=== PATIENT | female | born 1960 | race Caucasian/White ===

== ENCOUNTER 2018-02-27 08:33 | Day surgery (SDC) | payer OTHER, MEDICARE, SELFPAY ==
[2018-02-27] VITALS (7 sets, daily range): BP systolic 107–137; BP diastolic 68–86; PULSE 60–66; RESP 14–18; TEMP 36.7–37.3; O2SAT 96–100; BMI 15.4
--- NOTE | 2018-02-27 08:45 | EKG12_ITS ---
Test Reason : PRE-OP Blood Pressure : / mmHG Vent. Rate : 063 BPM Atrial Rate : 063 BPM P-R Int : 128 ms QRS Dur : 090 ms QT Int : 454 ms P-R-T Axes : 084 -46 040 degrees QTc Int : 464 ms Normal sinus rhythm Left axis deviation Abnormal ECG When compared with ECG of 02-OCT-2003 18:43, No significant change was found Confirmed by DANO QUIROGA, AYLIN ([id number]), assignment editor MAT VALADEZ ([id number]) on 03/02/2018 2:56:15 PM Referred By: Catracho Hernandez Confirmed By:AYLIN MATSON MD
[2018-02-27 09:14] LABS: Basophil# 0.04 X10^3/uL; Basophil% 1.5 % (0-1); Differential Indicated SCAN CRITERIA MET; Eosinophil# 0.06 X10^3/uL; Eosinophils% 2.3 % (0-5); Hematocrit 37.4 % (37-47); Hemoglobin 12.5 g/dl (12.0-15.0); Lymphocyte % 37.9 % (19-41); Mean Corp Hgb Conc 33.4 g/gl (32-36); Mean Corpuscular Hgb 31.2 pg (27.0-32.0); Mean Corpuscular Volume 93.3 fL (81-99); Monocyte# 0.54 X10^3/uL; Monocyte% 20.5 % (0-10); Neutrophil % 37.8 % (47-70); POSITIVE COUNT NO; POSITIVE DIFFERENTIAL YES; POSITIVE MORPHOLOGY NO; Platelet Count 206 K/mm3 (150-450); RBC Distribution Width CV 12.6 % (11.6-14.6); RBC Distribution Width SD 42.8 fl (35.1-43.9); Red Blood Count 4.01 M/mm3 (4.2-5.4); White Blood Count 2.6 K/mm3 (4.4-11.0)
[2018-02-27 09:35] LABS: ALB/GLOB Ratio 1.4 RATIO (0.9-2.4); AST(SGOT) 17 U/L (15-37); Alanine Aminotransfer ALT/SGPT 16 U/L (13-56); Alkaline Phosphatase 62 U/L (45-117); Anion Gap 7 (5-15); BUN 8 mg/dL (7-18); BUN/Creat Ratio 11.5 RATIO (10-20); Calcium,Total 8.8 mg/dL (8.5-10.1); Chloride 102 mmol/L (98-107); EST Glomerular Filtration Rate 91 mL/min (>60); Est Glom Filt Rate - Afr Amer 111 mL/min (>60); Estimated Creatinine Clearance 54.78 ml/min; Globulin 2.9 g/dL (2.2-4.2); Glucose 84 mg/dL (74-106); Potassium 3.7 mmol/L (3.5-5.1); Protein, Total 6.9 g/dL (6.4-8.2); Sodium Level 141 mmol/L (136-145); Thyroid Stim Hormone (TSH) 3.22 uIU/mL (0.358-3.74)
--- NOTE | 2018-02-27 10:00 | RAD_ITS ---
STUDY: X-RAY LEFT FOOT, FIRST AND FIFTH TOE REASON FOR EXAM: Female, 57 years old. Postoperative study TECHNIQUE: 2 view(s) of the toe were obtained. COMPARISON: None. FINDINGS: 2 views of the left toes are provided. There is a staple within the proximal first metatarsal. There is an arthroplasty of the fourth and fifth digits at the osteotomy of the head of the proximal phalanx of the fifth digit. There is a subtle irregular appearance of the tip of the distal phalanx of the first digit which may represent age-indeterminate fracture. RAD/Toe(s) Min 2 Views IMPRESSION: 2 views of the left toes are provided. There is a medial placed orthopedic staple within the proximal first metatarsal. There is an arthrodesis of the fourth and fifth digits and a osteotomy of the head of the proximal phalanx of the fifth digit. There is a subtle irregular appearance of the tip of the distal phalanx of the first digit which may represent age-indeterminate fracture. Electronically Signed: Sherrell Cantor MD at 17:28 EST Tel , Service support ,
[2018-02-27] MEDS: Bupivacaine Mpf 0.5% 30 ML VIAL (11:17)
[2018-02-27] MEDS: Cefazolin 2 GM in 0.9% Normal Saline 100 ML IV (11:29)
--- NOTE | 2018-02-27 12:54 | RAD_ITS ---
STUDY: X-RAY - LEFT FOOT CLINICAL: Female, 57 years old. Postop osteotomy first toe postoperative change fourth and fifth TECHNIQUE: 3 view(s) of the foot. COMPARISON: None. FINDINGS: Normal talus, calcaneus, and tarsal bones. Normal visualized subtalar, talonavicular, calcaneocuboid, tarsal and tarsometatarsal articulations. Normal metatarsi. Normal metatarsophalangeal joint of the great toe. Normal tibial and fibular sesamoid bones. Normal interphalangeal joint of the great toe. Normal phalanges of the great toe. Normal second through fifth metatarsophalangeal joints. There are K wires inserted into the fourth and fifth digits through the distal interphalangeal joint through the proximal interphalangeal joint of the fourth digit and fifth digit. There is been osteotomy of the head of the proximal phalanx of the fifth digit. There is been a repair of the first proximal phalanx. The bones are osteopenic. There is no visualized acute fracture. RAD/Foot min 3 Views IMPRESSION: Postoperative change first proximal phalanx, fourth and fifth digits. Electronically Signed: Sherrell Cantor MD at 14:28 EST Tel , Service support ,
--- NOTE | 2018-02-27 12:55 | DCINST_ITS ---
Discharge Diet: Light diet - advance as tolerated Discharge Activity: May Not Drive Weight Bearing Status: No weight bearing - No weightbearing left foot Keep extremity elevated above heart level: Left Leg - Keep left foot elevated for at least 50 minutes per hour with pillows Call your doctor if your incision/area has: Continuous Slow Oozing, Sudden Increased Bleeding, Increased Pain/ Swelling, Foul Smelling Discharge Call your doctor if you observe: Fever of 101 or Higher, Shortness of breath, Chest pain, Increased palpitations (irregular heartbeat), Calf discomfort, Uncontrolled pain Cleanse incision/area with: Do not get Incision Wet, Keep Dressing Clean & Dry Allergies/Adverse Reactions: Allergies adhesive tape Allergy (Verified 02/27/18 09:07) Itching fish oil Allergy (Verified 02/27/18 09:07) Unknown ragweed pollen Allergy (Verified 02/27/18 09:07) Unknown Sulfa (Sulfonamide Antibiotics) Allergy (Verified 02/27/18 09:07) Unknown DUST MITES Allergy (Uncoded 02/27/18 09:07) Other PENICILLUM NOTATUM Allergy (Uncoded 02/27/18 09:07) Other Medications to take at Discharge ALPRAZolam [Xanax] 0.5 mg PO BID 12/06/13 Cholecalciferol (Vitamin D3) [Vitamin D3] 1,000 unit PO DAILY 12/06/13 Cimetidine [Tagamet Hb] 200 mg PO DAILY PRN PRN 12/06/13 Cyanocobalamin (Vitamin B-12) [B-12] 1,000 mcg PO DAILY 12/06/13 Docusate Sodium [Colace] 100 mg PO DAILY PRN 12/06/13 Escitalopram Oxalate [Lexapro] 20 mg PO BID 12/06/13 Fluoxetine [Prozac] 20 mg PO DAILY 12/06/13 Gabapentin 300 mg PO BID 12/06/13 Gabapentin 600 mg PO QHS 12/06/13 Levothyroxine [Synthroid] 50 mcg PO QHS 12/06/13 Meclizine HCl 25 mg PO Q6H PRN PRN 12/06/13 Pyridoxine HCl [Vitamin B-6] 100 mg PO DAILY 12/06/13 Tolterodine Tartrate [Detrol] 1 mg PO QHS 12/06/13 Trazodone HCl 50 mg PO QHS 12/06/13 Bupropion HCl [Wellbutrin Xl] 150 mg PO DAILY 05/31/16 Dimethyl Fumarate [Tecfidera] 240 mg PO BID 05/31/16 L.acidoph,Paracasei, B.lactis [Probiotic] 1 each PO DAILY 02/24/18 Naproxen Sodium [Aleve] 220 mg PO Q12H PRN PRN 02/24/18 Vitamin A 10,000 unit PO DAILY 02/24/18 Hydrocodone Bitart/Apap 5-325 [[place] 5MG-325MG] 1 tab PO Q6H PRN PRN 3 Days #30 tab 02/27/18 The following prescriptions were given: Hydrocodone Bitart/Apap 5-325 [[place] 5MG-325MG] 1 tab PO Q6H PRN PRN 3 Days #30 tab PRN Reason: Pain Primary Care Physician: Fox Xiao MD [Primary Care Provider] - Test Results: Test results from this visit will be discussed in further detail at your follow- up appointment, if applicable. Please Follow Up With: Catracho Hernandez DPM When: within 1 week, sooner if needed
--- NOTE | 2018-02-27 12:57 | OP.PCM_ITS ---
Report of Operation Date of Procedure: 02/27/18 Pre-Operative Diagnosis: Hallux valgus, left. 4th and 5th digit hammer toes, left Post-Operative Diagnosis: Same Surgery/Procedure Performed:: Tressa (1st toe) osteotomy, left. Arthrodesis 4th toe, left. Arthroplasty 5th toe, left wire chief: yes - Dr. Eloisa Iraheta wire chief: yes - Dr. Cheyanne Hare Type of Anesthesia:: General Specimen's removed: None Description of Procedure: Indications: This is a 57 year-old female who has had chronic left foot pain to the 4th and 5th toes as well as 1st toe. She has lateral deviation of the hallux and 4th and 5th hammer toe deformities. She has trouble with shoes and with activities. She has tried nonsurgical care however her symptoms persist and are only getting worse. She was asking about surgical options. We discussed all of the options, and she elected to proceed with 1st toe tressa osteotomy as well as arthrodesis of the 4th toe and arthroplasty of the 5th toe. This was discussed with her in great detail. We reviewed all the possible benefits, risks, goals and expectations. She expressed understanding and agreement. We also reviewed the typical postoperative and expected postoperative course. She expressed understanding and agreement and wanted to proceed forward with surgical intervention. All alternative options were discussed with her and all the possible benefits, risks of the alternative options were discussed with her as well in detail. She expressed understanding and agreement and again want to proceed for surgical intervention. The consent form was reviewed with her and she freely signed them. No guarantees were given or implied. Operative Procedure: The patient was brought back into the operating room and was placed onto the operative table in the supine position. She was carefully secured to the operating room table with safety belt around her waist. The patient did receive 2 g of intravenous cefazolin for antibiotic prophylaxis, the patient received general anesthesia per the anesthesiologist. A well-padded pneumatic tourniquet was applied around her left ankle. The left foot was scrubbed, prepped and draped in the usual aseptic fashion. Further attention was directed to the left foot, there was significant hallux valgus deformity. The hallux was abutting into the second toe. The foot was elevated for 3 minutes and the left ankle pneumatic tourniquet was inflated to 250 mmHg. An incision was made using a 15 scalpel blade overlying the dorsal medial aspect of the hallux proximal phalanx, medial to the extension hallucis longus tendon. Careful dissection was completed down to the periosteum of the proximal phalanx of the hallux. The periosteum was incised on the hallux proximal phalanx and was partially reflected exposing the bone for an Tressa osteotomy. Tressa osteotomy was completed using a powered sagittal saw with the apex of the osteotomy lateral and the base medial. The wedge of bone was gently removed, keeping the lateral cortex intact. The hallux was shifted medially so that it was in a rectus position clinically. The bone ends were brought together and was fixated using rigid open reduction and internal fixation technique using one Arthrex nitinol staple. The 1st metatarsal phalangeal joint was checked and the staple was not in the joint. At this time, the osteotomy site was stable, good bone to bone contact and good fixation present. Intraoperative fluoroscopy confirmed this as well. The hallux was put through a range of motion, there was good smooth gliding range of motion present. The site was flushed out with copious amounts of normal saline solution. The periosteum and the first metatarsophalangeal joint capsule was carefully reapproximated using 3-0 Vicryl. The subcutaneous tissue layer was carefully reapproximated using 3-0 Vicryl. The skin was carefully reapproximated using 4-0 Monocryl. Procedure on 4th toe left foot: Two semi-elliptical converging skin incisions were made around the dorsal aspect of the proximal interphalangeal joint (PIPJ). The skin within the incisions was excised. The extensor digitorum longus tendon was visualized and incised transversely with a 15 blade. The dorsal PIPJ joint capsule was incised with a 15 blade. The extensor tendon was reflected off of the head of the proximal phalanx. The cartilage on the head of the proximal phalanx was resected using a sagittal saw. The cartilage on the base of the middle phalanx was resection using a bone cutting rongeur. The site was flushed out with copious amounts of normal saline solution. A 0.062 inch kwire was placed through the phalanges of the toe holding the toe in rectus position, there was good bone to bone contact at the arthrodesis site. This was confirmed with intra operative fluoroscopy. The site was again flushed out with copious amounts of normal saline solution. The joint capsule and extensor digitorum longus tendon was reapproximated using 4-0 Vicryl, the skin was reapproximated using 4-0 Monocryl. The kwire was trimmed outside of the toe at the distal aspect and was capped with a pin cap. Procedure on 5th toe left foot: Two oblique semi-elliptical converging skin incisions were made around the dorsal aspect of the proximal interphalangeal joint (PIPJ). The skin within the incisions was excised. The extensor digitorum longus tendon was visualized and incised transversely with a 15 blade. The dorsal PIPJ joint capsule was incised with a 15 blade. The extensor tendon was reflected off of the head of the proximal phalanx. The head of the proximal phalanx was resected using a powered sagittal saw. The site was flushed out with copious amounts of normal saline solution. A 0.062 inch kwire was placed through the phalanges of the toe holding the toe in rectus position. This was confirmed with intra operative fluoroscopy. The site was again flushed out with copious amounts of normal saline solution. The joint capsule and extensor digitorum longus tendon was reapproximated using 4-0 Vicryl, the skin was reapproximated using 4-0 Monocryl. The kwire was trimmed outside of the toe at the distal aspect and was capped with a pin cap. The pneumatic tourniquet was deflated at 60 minutes. There was immediate return of warmth and perfusion to the foot and to all five toes of the foot. CFT was < 2 seconds to all toes with normal temperature present. A 1st, 4th and 5th ray block was completed using 14mL of 0.5% Bupivacaine plain. A dressing was applied which consisted of Betadine soaked Adaptic, 4x4 gauze, Kerlix and an Edil bandage. The patient tolerated the above procedure well and anesthesia well with no complications. The patient was transported from the operative room to the recovery room with vital signs stable and in good condition. Post operative orders were placed, and post operative instructions were reviewed with the patient and her who was with her today (verbal and written). No weightbearing left forefoot, keep the dressing clean, dry and intact. Keep foot elevated for at least 50 minutes of every hour. Post operative prescriptions for [place] for pain control. Patient to follow up in 1 week, sooner if needed. Also of note post operative xrays were obtained of the left foot in the recovery room, which were reviewed. These confirmed hallux osteotomy (tressa) with good position present, with intact staple. Also s/p arthrodesis of the 4th toe and arthroplasty of the 5th toe with kwire intact, and toes in good alignment.. Grafts/Implants Used: 2 x 0.062 in kwires, 1 x Arthrex Nitinol staple - Complications None
== END 2018-02-27 14:43 | disposition home or self-care (01) ==
LOC: SDC 08:35 → AC 08:36
PROVIDERS: Family Provider Family Medicine; PCP Family Medicine; Referring Provider Podiatrist; Visit Provider Podiatrist
PROC: (CPT 28298; principal; 2018-02-27 09:45)
DX: M20.42 Other hammer toe(s) (acquired), left foot (principal); M20.12 Hallux valgus (acquired), left foot; F41.9 Anxiety disorder, unspecified; F32.9 Major depressive disorder, single episode, unspecified; G35 Multiple sclerosis; R56.9 Unspecified convulsions; E03.9 Hypothyroidism, unspecified; Q39.1 Atresia of esophagus with tracheo-esophageal fistula; Z87.440 Personal history of urinary (tract) infections; Z79.899 Other long term (current) drug therapy
CPT/HCPCS: 28285 ×2; 28296; 73630; 73660; 76000; 80053; 84443; 85025; 93005; C1713; J7120; J2405

== ENCOUNTER 2018-06-10 13:30 | Outpatient (RCR) | payer OTHER, MEDICARE, SELFPAY ==
[2018-02-27 09:11] VITALS: BMI 15.4
--- NOTE | 2018-05-05 19:06 | HP.PTEVAL ---
Patient's Visit Information GURMEET MOSHER is a 58 year old F referred to Physical Therapy by Catracho Hernandez DPM with a diagnosis of L hammer toes correction. Date of Evaluation: 05/05/18 Physical Therapist: Livan Altamirano DPT, OCS, CSCS - Visit Plan Frequency: 3x /Week Duration: 4-6 Weeks Plan: 3x/week for 4 weeks. 1. gastroc and soleus stretch L, ankle TB strength, stretch quads and hip flexors also. 2. increase gradual WB adn gait with L foot. 3. General strength ex for posture, LE and core machines and body weight. - Subjective Findings: 02/27/19 fixed L hammer toes 1,4,5. Painful at the time adn limited function. Now not painful. Needs to be stronger in legs. Had been wheelchair NWB until mid March. Walking in boot a little last three weeks. Surgical shoe feels better as she has MS. Uses walking stick all the time due to MS adn surgery. Has service dog but not with her today. Sleeping OK. Spends day working on speech, fairly sedentary. Cleans some toilets and bathrroma nd washes dishes. If on feet too long than it complains. 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 Wants to get back to pool ex when able. - Pain L foot Pain Intensity (Out of 10): 0 Pain Intensity Range: 0, 2 Comment: washing dishes - Objective In walking boot on L and walking with stick which is normal for her, dons and doffs boot I. Without boot can walk with stick but hesitant to put weight through L otes, very little push off B. Bears weight asymmetrically more through R in stance. pes cavus B with some forefoot supination L >R. Incisions look good and are dry and no excessive redness heat or swelling. AROM toes L limited symmetricall, has 10 degrees passive big toe ex but can only active move to neutral, has 25 degrees flexion. AROM ankle 0 DF L and 7 on R, PF is full B, inv/ev WFL. Metatarsals move stiff on L, increased tone likely due to MS. strength.4- L inv/ev , DF and 3 + PF, R is 4/5 throughout. knee strength 4 B. Hip strength 3 abd and ext L and 3+ R, flexion is 4/5 B. Pt does not want to put weight through L side and avoids toe WB. Pt is WBAT on L foot but uses boot out and about. - Goals Goal 1:: 6 degrees DF L and able to bear weight symmetrically with stance Goal Time Frame: 4-6 Weeks Goal 2:: Walk normal community distances without pain Goal Time Frame: 4-6 Weeks Goal 3:: Steps reciprocally with rail Goal Time Frame: 4-6 Weeks Goal 4:: Pt feel 75% better with strength adn back to activity level Goal Time Frame: 4-6 Weeks - Rehabilitation Potential Physical Therapy Diagnosis: s/p L hammer toe correction Rehabilitation Potential: Fair - Anticipated Interventions Patient/Client Instruction: Educate patient on: Condition, Plan of Care For the Purpose of:: To decrease pain, To increase ROM, To improve nutrient delivery to tissue, To improve ability of physical actions for home/community/work/leisure Therapeutic Exercise to Include: Strength training, Balance training, Coordination, Flexibilty training, Gait and locomotor training, Passive ROM, Active ROM For the Purpose of:: To decrease pain, To increase ROM, To improve nutrient delivery to tissue, To improve muscle performance and motor function, To increase tolerance to activity/condition/position, To improve gait and locomotor functions Manual Therapy Techniques to Include: Passive ROM, Soft tissue mobilization For the Purpose of:: To decrease pain, To increase ROM, To improve nutrient delivery to tissue Thank you for the opportunity to evaluate your patient. For Medicare and Medicare HMO plans, please review the plan of care and approve it. It will need to be FAXED BACK to us at [phone] for Medicare purposes. For Medicare only, by signing this I certify the plan of care. Please let me know if there are questions or concerns regarding this plan of care. Physician Signature: Date:
--- NOTE | 2018-06-03 13:59 | HP.PTREVAL ---
Catracho Hernandez, GRETA, It has been my pleasure to treat GURMEET MOSHER over the last 12 visits for L hammer toes correction. Please see the progress note below for an update on the physical therapy plan of care! Subjective: Doing very well. Back to mostly normal acitviites excedpt not driving( won't let her. Foot feels good with 3/10 pain at times and some tender areas that she is putting cream from doctor on. Sleeping well. Objective/Function: 8 degrees AROM DF knee bent and 6 degrees knee straight. Tender to top of 1st met head but toes RPOM painfree today and fair ROM. Walking in shoes with trendelenberg without cane but safe on firm flat surface. Plan Plan: 2 visits next week to encourage independence with gym(teach set up, write them out adn give copy) Then liekly D/C Goals Goal 1:: 6 degrees DF L and able to bear weight symmetrically with stance Goal Time Frame: 4-6 Weeks Goal Progress: Goal Met Goal 2:: Walk normal community distances without pain Goal Time Frame: 4-6 Weeks Goal Progress: Progressing Goal 3:: Steps reciprocally with rail Goal Time Frame: 4-6 Weeks Goal Progress: Goal Met Goal 4:: Pt feel 75% better with strength adn back to activity level Goal Time Frame: 4-6 Weeks Goal Progress: Progressing Anticipated Interventions Patient/Client Instruction: Educate patient on: Condition, Plan of Care For the Purpose of:: To decrease pain, To increase ROM, To improve nutrient delivery to tissue, To improve ability of physical actions for home/community/work/leisure Therapeutic Exercise to Include: Strength training, Balance training, Coordination, Flexibilty training, Gait and locomotor training, Passive ROM, Active ROM For the Purpose of:: To decrease pain, To increase ROM, To improve nutrient delivery to tissue, To improve muscle performance and motor function, To increase tolerance to activity/condition/position, To improve gait and locomotor functions Manual Therapy Techniques to Include: Passive ROM, Soft tissue mobilization For the Purpose of:: To decrease pain, To increase ROM, To improve nutrient delivery to tissue Please do not hesitate to contact me at [phone] by phone or if you have questions or concerns regarding this new plan of care! Sincerely, Livan Altamirano, DPT, OCS, CSCS
--- NOTE | 2018-06-10 14:38 | HP.PTDCSUM ---
HP - PT D/C Summary It has been my pleasure to treat GURMEET MOSHER under orders from Catracho Hernandez DPM, for the diagnosis of L hammer toes correction for a total of 14 visit(s). Discharge Date: 06/10/18 Please see the following information for a summary of their discharge status. - Subjective Subjective: Doing fine, ready to be on own. - Pain L foot Pain Intensity (Out of 10): 2 - Overall Improvement % Improvement: 70 - Objective Objective/Function: Walking with cane I and without unusual gait deviations. Pt ready to be on own and doign well in the gym. - Goals Goal 1:: 6 degrees DF L and able to bear weight symmetrically with stance Goal Progress: Goal Met Goal 2:: Walk normal community distances without pain Goal Progress: Goal Met Goal 3:: Steps reciprocally with rail Goal Progress: Goal Met Goal 4:: Pt feel 75% better with strength adn back to activity level Goal Progress: Goal Met - Plan Plan: Pt D/C and will join as a member and continue I. - D/C Information Discharge Comments: Pt doing very well with goals , stretches and plans to cotninue strength via gym membership and foot ROM and stretches via HEP. If there are questions or concerns regarding this patient's physical therapy, please feel free to call me at [phone]. Thank you for the referral of this patient. Sincerely, Livan Altamirano, DPT, OCS, CSCS
== END 2018-06-10 19:00 | disposition home or self-care (01) ==
LOC: PT 13:30
PROVIDERS: Family Provider Family Medicine; PCP Family Medicine; Referring Provider Podiatrist; Visit Provider Podiatrist
DX: Z98.890 Other specified postprocedural states (principal)
CPT/HCPCS: 97110; 97140; 97162; 97530

== ENCOUNTER → 2019-01-21 | Outpatient (CLI) | payer OTHER, MEDICARE, SELFPAY ==
[2018-10-29 14:25] VITALS: BMI 16.1
--- NOTE | 2019-01-21 18:14 | MRI_ITS ---
STUDY: MRI LEFT FOREFOOT WITHOUT CONTRAST REASON FOR EXAM: Female, 58 years old. First toe fracture. Prior hammertoe surgery. TECHNIQUE: Standardized fat and water weighted pulse sequences were obtained in all 3 orthogonal planes. COMPARISON: X-ray dated February 27, 2018. FINDINGS: Acute nondisplaced first distal phalanx fracture with extensive bone marrow edema (sagittal image 21 series 5 and axial image 16 series 8). No dislocation. No bone destruction. Postsurgical hardware at the first proximal phalanx (coronal image 13 series 8). Proximal interphalangeal joint arthrotomies with osseous fusion of the second and third proximal interphalangeal joints. Mild joint space narrowing at the distal interphalangeal joints diffusely. Mild joint space narrowing at the fourth and fifth proximal interphalangeal joints with suspected arthrotomy at the fifth digit. Mild bone marrow edema/contusion at the fourth and fifth digits most prominent around the proximal interphalangeal joints. Normal flexor tendons. Normal extensor tendons. Normal Lisfranc ligament. No focal muscle atrophy. MRI/Lower Ext/No Jt/w/o IMPRESSION: Acute nondisplaced first distal phalanx fracture with marrow edema Multiple PIP joint arthrotomies with fusion of the second and third PIP joints Mild bone marrow edema/contusion at the fourth and fifth digits without fracture lines First proximal phalanx postsurgical hardware Mild joint space narrowing Electronically Signed: Livan Nath DO at 9:55 EDT Tel , Service support ,
== END | disposition home or self-care (01) ==
LOC: MRI 17:55
PROVIDERS: Family Provider Family Medicine; PCP Family Medicine; Referring Provider Podiatrist; Visit Provider Podiatrist
DX: M19.072 Primary osteoarthritis, left ankle and foot (principal); S92.402A Displaced unspecified fracture of left great toe, initial encounter for closed fracture
CPT/HCPCS: 73718

== ENCOUNTER 2019-08-06 15:05 | Emergency (ER) | payer OTHER, MEDICARE, SELFPAY ==
[2018-10-29 14:25] VITALS: BMI 16.1
[2019-08-06 15:06] VITALS: BP 96/66; PULSE 76; RESP 18; TEMP 36.7; O2SAT 99; BMI 15.4
[2019-08-06 15:34] VITALS: BP 96/66; PULSE 76; RESP 18; TEMP 36.7; O2SAT 99
--- NOTE | 2019-08-06 15:41 | ED.DCSUM_ITS ---
- ER Visit Summary Date of Service: 08/06/19 Chief Complaint: Fever History of Present Illness: The patient is a 59 F who presents with fever that has been constant for the past month. Patient states her temperature was greater than 100.5. Patient admits to some urinary frequency. Patient states she has been treated with 2 different courses of antibiotics for urinary tract infections. Patient admits to some loose stools but denies any diarrhea. Patient denies any nausea or vomiting. Patient does admit to a sore throat. Patient denies any cough or shortness of breath. Patient states earlier in the month she had an episode of chest pain but this has resolved and has not returned. Physical Examination: Vital signs are stable. Patient is afebrile here. Patient is in no acute distress. Neck is supple. Trachea is midline. There is no JVD. Heart was regular rate and rhythm. Lungs are clear and equal bilaterally. Abdomen is soft. Bowel sounds are normal. There is no tenderness. Cranial nerves II through XII are intact. There are no focal motor or sensory deficits noted. Extremities are intact. There is no calf tenderness or edema. Test Results: CBC was essentially within normal limits. Comprehensive metabolic profile and urinalysis were normal. Rapid strep, RSV, and influenza swabs were obtained were all good if. Portable chest x-ray was obtained. There is hyperinflation consistent with COPD but no acute process. This was interpreted by the radiologist and reviewed by myself. Emergency Department Course and Treatment: Patient was afebrile here and remained afebrile. Patient was feeling better on reevaluation. Patient was advised of her results. Patient was instructed to follow-up with her primary care physician in 5 to 7 days. Patient understood and was agreeable with the plan. All questions were answered. Disposition: Discharge home Impression: Fever of unknown etiology This note was generated with [employer] dictation software. It may contain incorrect words, spelling, and punctuation that were not noted in review of the chart prior to signing ED Disposition - Plan for ED Patient: Disposition: Home or Assisted Living Diagnosis: Fever of unknown origin Instructions: ED FUO Adult Referrals: Fox Xiao MD [Primary Care Provider] - 5-7 Days
[2019-08-06 15:52] LABS: Bacteria 0 SEEN /hpf (None Seen)
--- NOTE | 2019-08-06 15:52 | RAD_ITS ---
STUDY: X-RAY CHEST REASON FOR EXAM: Female, 59 years old. FEVER X 1 MONTH TECHNIQUE: The COMPARISON: None. FINDINGS: Hyperexpansion without infiltrates, consolidation or atelectasis. There is no demonstrated pleural abnormality. Normal size heart. Normal mediastinum and silvia. Normal visualized pulmonary arteries. Normal visualized aortic arch and descending thoracic aorta. Normal visualized thoracic spine. Normal visualized ribs, clavicles, and shoulders. There is no demonstrated abnormality of the visualized soft tissue structures of the upper abdomen. RAD/Chest 1 View (Portable) IMPRESSION: Hyperexpansion consistent with a component of COPD without other acute cardiopulmonary findings. Negative for consolidation, atelectasis, cardiomegaly or pleural effusion. Electronically Signed: Erna Vences MD at 16:09 EDT , Service support ,
[2019-08-06 16:00] LABS: Color, Urine Yellow (Yellow); Glucose, Dipstick Normal (Normal); Ketone-Dipstick Negative (Negative); Leukocyte Esterase-Dipstick Negative /ul (Negative); Nitrite-Dipstick Negative (Negative); Occult Blood-Urine 10 /ul (Negative); Protein-Dipstick Negative (Negative); Specific Gravity, Urine 1.015 (1.002-1.030); Urine Bilirubin Dipstick Negative (Negative); Urine Clarity Clear (Clear); Urine Urobilinogen Normal (Normal)
[2019-08-06 16:08] LABS: Absolute Lymphocyte Count 0.95 X10^3/uL (0.83-4.51); Absolute Neutrophil Count 1.9 X10^3/uL (2.0-7.7); Basophil# 0.03 X10^3/uL; Basophil% 0.9 % (0-1); Eosinophil# 0.05 X10^3/uL; Eosinophils% 1.5 % (0-5); Hematocrit 37.4 % (37-47); Hemoglobin 12.5 g/dL (12.0-15.0); Lymphocyte # 0.95 X10^3/ul (4.0); Lymphocyte % 28.3 % (19-41); Mean Corp Hgb Conc 33.4 g/dL (32-36); Mean Corpuscular Hgb 32.5 pg (27.0-32.0); Mean Corpuscular Volume 97.1 fL (81-99); Mean Platelet Vol. 11.1 fl (6.2-12.0); Monocyte# 0.46 X10^3/uL; Monocyte% 13.7 % (0-10); NRBC Flagged by Analyzer 0 % (0-5); Neutrophil # 1.86 X10^3/uL (2.7-7.7); Neutrophil % 55.3 % (47-70); Platelet Count 190 K/mm3 (150-450); RBC Distribution Width CV 12.5 % (11.6-14.6); RBC Distribution Width SD 44.5 fl (35.1-43.9); Red Blood Count 3.85 M/mm3 (4.2-5.4); White Blood Count 3.4 K/mm3 (4.4-11.0)
[2019-08-06 16:27] LABS: ALB/GLOB Ratio 1.4 RATIO (0.9-2.4); AST(SGOT) 16 U/L (15-37); Alanine Aminotransfer ALT/SGPT 24 U/L (13-56); Albumin, Serum 4.1 g/dL (3.2-5.0); Alkaline Phosphatase 78 U/L (45-117); Anion Gap 4 (5-15); BUN 13 mg/dL (7-18); Calcium,Total 9.2 mg/dL (8.5-10.1); Chloride 107 mmol/L (98-107); Creatinine, Serum 0.68 mg/dL (0.55-1.02); EST Glomerular Filtration Rate 93 mL/min (>60); Est Glom Filt Rate - Afr Amer 112 mL/min (>60); Estimated Creatinine Clearance 54.31 ml/min; Globulin 2.9 g/dL (2.2-4.2); Glucose 103 mg/dL (74-106); Potassium 4.3 mmol/L (3.5-5.1); Sodium Level 143 mmol/L (136-145)
[2019-08-06 16:59] LABS: Squamous Epithelial Cells - UA 0-5 SEEN /hpf (5-10)
[2019-08-06 17:00] LABS: Mucous, Urine RARE /hpf (<or=2+); Red Blood Cells-Urine 0-5 SEEN /hpf (0-5)
[2019-08-06 17:01] LABS: White Blood Cells 0-5 SEEN /hpf (0-5)
[2019-08-06 19:08] VITALS: BP 104/64; PULSE 56; RESP 18; TEMP 36.8; O2SAT 100
== END 2019-08-06 19:12 | disposition home or self-care (01) ==
PROVIDERS: Emergency Provider Emergency Medicine; PCP Family Medicine
DX: R50.9 Fever, unspecified (principal); G35 Multiple sclerosis; K50.90 Crohn's disease, unspecified, without complications; Z79.899 Other long term (current) drug therapy
CPT/HCPCS: 71045; 80053; 81001; 85025; 87804; 87807; 87880; 99283; A4216

== ENCOUNTER → 2019-12-02 | Outpatient (CLI) | payer OTHER, MEDICARE, SELFPAY ==
[2019-09-15 11:47] VITALS: BMI 15.4
--- NOTE | 2019-12-02 15:05 | US_ITS ---
HISTORY: NEUROGENIC BLADDER ADDITIONAL HISTORY: None provided. COMPARISON: None. TECHNIQUE: Ultrasound of the kidneys and bladder performed with grayscale and color Doppler imaging. FINDINGS: RIGHT KIDNEY: 8.4 x 4.5 x 3.4 cm LEFT KIDNEY: 8.1 x 3.9 x 3.9 cm ECHOGENICITY: Unremarkable. HYDRONEPHROSIS: None. CALCULI: None. RENAL LESIONS: None. BLADDER: No significant bladder wall thickening. Postvoid residuum of approximately 102 mL. URETERAL JETS: Visualized US/Kidney and Bladder IMPRESSION: No acute renal abnormality is sonographically apparent. Post void residuum of the bladder measuring approximately 102 mL. at 0111 Reported and signed by: Venus Koehler MD Electronically Signed: Venus Koehler MD at 1:10 EDT Tel , Service support ,
== END | disposition home or self-care (01) ==
LOC: US 15:00
PROVIDERS: PCP Family Medicine; Referring Provider Urology; Visit Provider Urology
DX: N31.9 Neuromuscular dysfunction of bladder, unspecified (principal)
CPT/HCPCS: 76770

== ENCOUNTER 2020-10-04 14:00 | Outpatient (RCR) | payer OTHER, MEDICARE, SELFPAY ==
[2019-09-15 11:47] VITALS: BMI 15.4
--- NOTE | 2020-09-04 16:07 | HP.PTEVAL_ITS ---
Patient's Visit Information GURMEET MOSHER is a 60 year old F referred to Physical Therapy by HOMER RICE with a diagnosis of MS, frequent falls. Date of Evaluation: 09/04/20 Physical Therapist: Livan Altamirano, NOELLET, OCS, CSCS - Visit Plan Frequency: 1x/Week Duration: 4-6 Weeks Plan: weekly x 4 for insturction and progression of. WB hip ex(inchworms, sidesquat, dips, bridges, clamshells), ankle ex DF and gastroc stretch, and proprioception(foam, tandem stance, head movements and dynamic balance) - Subjective I am having trouble walking. I fall alot. Falls weekly. Balance is off. No spinning, weakness in legs. Not sure why it is worseing but feels weaker. Does some exercises at home including HS stretches, single leg squats, mule kicks, hip abduction standing, knee flexion standing,gastroc stretch, tennis for balance. Does these ex daily utside of tennis. Not sure why she is falling more now however she stayed home for covid adn did much less. Could not get into gym due to covid. No spinning. Neuropathy in legs from MS diagnosis 1980. Uses walking sticks to get around and has assistance dog that helps her(not present today). Basic ADLs are getting done. Hobbies include coloring whcih she can do. Plays tennis on [employer]. Dresses self. Steps at home with two rails and tries to do them quickly(holding on) for heart rate. Started pool ex yesterday at home. Was walking better after that and will be in all summer. Surgery on feet has kept her from wearing her braces whcih she has AFOs for L which is weaker. - Objective Walks with B poles two point gait pattern in adn out of PT safe adn I. Walks without AD needing SBA for safety. Ataxic. Trasnfer without UE I bed adn chair. Squats to parallel I needing cues to keep knees apart ont he recovery. SLS is hard for patient who acks propriaoception. Steps require at least one rail and prefers two and can do reciprocal, L leg weaker. AROM LE WFL today, sensation LE WNL to gross light touch. reflexes patella and achilles 2/3. UEAROM WFL. strength hip ext L 3 adn R 3+, abd 3 L and 3 R, flexion R 3+ adn L 3. knee ext 4 L adn 4- R, knee flexion 3+ L and 4- R. Ankles weak in DF 3+ and 4- PF adn 3 L inv/ev adn 3+ R. - Balance Scores Functional Gait Assessment Score: 13 % Disability: 56.6700 CATSIB Score (Max score 120 seconds): 38 - Goals Goal 1:: I ppropriate HEP for hip strength, ankle strength, proprioception Goal Time Frame: 4-6 Weeks Goal 2:: Pt feel I management of condition Goal Time Frame: 4-6 Weeks Goal 3:: up from chair and down steps without kness coming together. Goal Time Frame: 4-6 Weeks - Rehabilitation Potential Physical Therapy Diagnosis: weaknessin hips,ankles and diminished proprioception leading to mobility risks Rehabilitation Potential: Fair - Anticipated Interventions Patient/Client Instruction: Educate patient on: Condition, Plan of Care For the Purpose of:: To decrease pain, To increase ROM, To improve muscle performance and motor function, To increase tolerance to activity/condition/position Therapeutic Exercise to Include: Strength training, Balance training, Postural training, Neuromotor development For the Purpose of:: To improve nutrient delivery to tissue, To improve muscle performance and motor function, To increase tolerance to activity/condition/position, To improve gait and locomotor functions, To improve balance Thank you for the opportunity to evaluate your patient. For Medicare and Medicare HMO plans, please review the plan of care and approve it. It will need to be FAXED BACK to us at [phone] for Medicare purposes. For Medicare only, by signing this I certify the plan of care. Please let me know if there are questions or concerns regarding this plan of care. Physician Signature: Date:
--- NOTE | 2020-12-07 17:56 | HP.PT.NRP ---
GURMEET MOSHER was seen in my office for initial evaluation on 09/04/20. The following Plan of Care was established for this patient: Initial Frequency: 1x/Week Initial Duration: 4-6 Weeks Patient/Client Instruction: Educate patient on: Condition, Plan of Care For the Purpose of:: To decrease pain, To increase ROM, To improve muscle performance and motor function, To increase tolerance to activity/condition/position Therapeutic Exercise to Include: Strength training, Balance training, Postural training, Neuromotor development For the Purpose of:: To improve nutrient delivery to tissue, To improve muscle performance and motor function, To increase tolerance to activity/condition/position, To improve gait and locomotor functions, To improve balance This patient was last seen in our office 10/04/20. Pertinent comments regarding their Physical therapy will appear below: Pt seen 3 visits and was 50% improved overall. she was to f/u 3 weeks later for progression but did not schedule or attend. at this point, it has been over two months and I will discontinue due to nonattendance. At this point I will be discontinuing this patient from physical therapy. I would be happy to see this patient again in the future if found appropriate by the physician. Thank you! Livan Altamirano, DPT, OCS, CSCS Balance/Gait/Functional tests - Balance/Special Test Scores Functional Gait Assessment Score: 13 % Disability: 56.6700 CATSIB Score (Max score 120 seconds): 38 Lower Extremity Functional Score: 50
== END 2020-10-04 19:00 | disposition home or self-care (01) ==
LOC: PT 14:00
PROVIDERS: PCP Family Medicine
DX: G35 Multiple sclerosis (principal); R27.0 Ataxia, unspecified; R29.6 Repeated falls
CPT/HCPCS: 97110; 97162

== ENCOUNTER 2020-10-29 14:57 | Emergency (ER) | payer OTHER, MEDICARE, SELFPAY ==
[2019-09-15 11:47] VITALS: BMI 15.4
[2020-10-29 14:58] VITALS: BP 104/60; PULSE 68; RESP 16; TEMP 36.6; O2SAT 100; BMI 16.0
--- NOTE | 2020-10-29 15:27 | EX.ED.DYSGE1 ---
HPI History of Present Illness Chief Complaint: Other, Pain/Inj Informant: patient Narrative Narrative: Patient is a 60-year-old female with history of multiple sclerosis presenting with left-sided rib/flank pain as well as urinary symptoms. Patient states she had a fall 1 week ago. She tripped into a coffee table. She did hit her head. She landed on her left side. She went to urgent care couple days later and had x-rays which she states were normal. She is continued have pain in her left lower ribs is worse with deep breathing and movement. She does note that she recently had a urinary tract infection and finished a course of ciprofloxacin. She had her last dose today. Her urologist is Dr. Eason. Patient notes that she self-caths every night and had to self cath during the day 2 days ago because she drank a bottle water and was unable to urinate afterwards. Patient denies any radiation of the pain. She is concerned she possibly could have a kidney stone. She denies any associated rash. She denies any bruising. [facility] Medical History Anxiety Depression History of toe fracture Hypoglycemia Hypothyroid IBS (irritable bowel syndrome) Multiple sclerosis Neuropathy Osteopenia Home Medications alprazolam 0.25 mg PO BID 12/06/13 [History Last Taken 03/28/17] cholecalciferol (vitamin D3) 1,000 unit PO DAILY 12/06/13 [History Last Taken Unknown] cyanocobalamin (vitamin B-12) 1,000 mcg PO DAILY 12/06/13 [History Last Taken Unknown] docusate sodium 100 mg PO DAILY PRN 12/06/13 [History Last Taken Unknown] escitalopram oxalate 20 mg PO BID 12/06/13 [History Last Taken 06/07/16 05:15] fluoxetine 20 mg PO DAILY 12/06/13 [History Last Taken 06/07/16 05:15] gabapentin 300 mg PO BID 12/06/13 [History Last Taken 02/27/18 300 MG] gabapentin 600 mg PO QHS 12/06/13 [History Last Taken Unknown] levothyroxine 50 mcg PO QHS 12/06/13 [History Last Taken Unknown] meclizine 25 mg PO Q6H PRN PRN 12/06/13 [History Last Taken Unknown] pyridoxine (vitamin B6) 100 mg PO DAILY 12/06/13 [History Last Taken Unknown] trazodone 50 mg PO QHS 12/06/13 [History Last Taken Unknown] bupropion HCl 300 mg PO DAILY 05/31/16 [History Last Taken Unknown] L.acidoph, paracasei,B. lactis 1 ea PO DAILY 02/24/18 [History Last Taken Unknown] naproxen sodium 220 mg PO Q12H PRN PRN 02/24/18 [History Last Taken Unknown] ferrous sulfate 325 mg PO DAILY 10/29/20 [History Last Taken Unknown] hydrocodone-acetaminophen 1 tab PO Q6H PRN 3 Days #12 tab 10/29/20 [Rx Last Taken Unknown] oxybutynin chloride 10 mg PO DAILY 10/29/20 [History Last Taken Unknown] Allergy/AdvReac Type Severity Reaction Status Date / Time adhesive tape Allergy Itching Verified 10/29/20 15:02 fish oil Allergy Unknown Verified 10/29/20 15:02 ragweed pollen Allergy Unknown Verified 10/29/20 15:02 Sulfa (Sulfonamide Allergy Unknown Verified 10/29/20 15:02 Antibiotics) DUST MITES Allergy Other Uncoded 10/29/20 15:02 PENICILLUM NOTATUM Allergy Other Uncoded 10/29/20 15:02 Family History Other Cancer Heart disease Hypertension Social History Smoking Status: Never smoker alcohol intake: never substance use type: does not use what type of physical activity do you participate in: walking frequency: 3-4 times per week ROS ROS ED Constitutional Constitutional ED: Denies chills or fever(s) Eyes Eyes: Denies change in vision ENT ENT ED: Denies rhinorrhea or sore throat Cardiovascular Cardiovascular: Reports chest pain Respiratory/Chest Respiratory/Chest: Denies cough or dyspnea Gastrointestinal Gastrointestinal: Denies abdominal pain, diarrhea or vomiting Genitourinary Genitourinary ED: Reports other Details: urinary retention ; Denies dysuria or hematuria Musculoskeletal Musculoskeletal: Reports other Details: left flank pain ; Denies arthralgias, back pain, myalgias or neck pain Integumentary Denies rash Neurologic Neurologic: Denies headache(s) or weakness Psychiatric Psychiatric: Denies depression EXAM Physical Exam Const Vital Signs: 10/29/20 14:58 10/29/20 15:12 10/29/20 17:50 Temperature 98 F Temperature Source Temporal Pulse Rate 68 Respiratory Rate 16 Respiratory Effort Normal Non-Labored Normal Respiratory Depth Normal Respiratory Pattern Normal Normal Blood Pressure 104/60 Blood Pressure Mean 74 Pulse Ox 100 Oxygen Delivery Method Room Air Room Air Positive well nourished and well developed General Appearance ED: well developed HEENT Reports moist mucous membranes Negative for trauma or tenderness Eyes PERRL and EOMs intact bilaterally Neck supple Chest Wall inspection of chest normal Chest: tenderness rib (left) 11th rib and 12th rib; Negative for crepitus Resp normal respiratory effort and clear to auscultation bilaterally Auscultation: Negative for wheezes or diminished lung sounds Cardio regular rate, regular rhythm and no murmurs GI normal to inspection, nondistended, normoactive bowel sounds Back/Spine no CVA tenderness Cervical Spine: Negative for cervical spine tenderness Thoracic Spine / Upper Back: Negative for thoracic spinal tenderness or paraspinal muscle tenderness Lumbar Spine / Lower Back: Negative for lumbar spinal tenderness Neuro oriented x3 and CN's II-XII intact bilaterally Sensorium / Orientation: alert Motor Exam: general weakness Psych mental status grossly normal Skin no rashes or lesions noted and no wounds MDM MDM MDM Narrative Medical decision making narrative: Patient evaluated for continued left-sided flank/rib pain. She had a mechanical fall a week ago. She does have MS so she has some bladder spasms/issues with urinary retention at baseline. She just finished a course of ciprofloxacin but is worried that she is not urinating as much as she should be. As patient is already had an x-ray I do not think there would be of benefit for repeating the x-rays there is been no new injury and she is hemodynamically stable. I do not suspect a pneumothorax and I do not think repeat imaging will change my management. Patient is given a Lidoderm patch for pain control in the ER. Urinalysis shows 0-5 red blood cells and 0-5 epithelial cells. There is no bacteria. I do not think this is consistent with infection and less likely kidney stone. Her pain is highly reproducible on direct palpation I think it is muscle skeletal. Patient is given a short course of [place] for pain control given a dose in the ER. She will follow-up with her urologist for her urinary symptoms. She is counseled on return precautions. She verbalizes agreement and understands this plan. She discharged home in stable motion. Just as the patient to be discharged she also notes that she has a bump behind her right ear. Patient has hard slightly mobile bump right behind the angle of the mandible. There are no signs of infection and patient is encouraged to follow-up with her primary care doctor for further evaluation of this as she might benefit from an outpatient ultrasound however I suspect it is a lymph node. Lab Data Labs: Laboratory Results - last 24 hr 10/29/20 10/29/20 15:41 16:17 Urine Color Cancelled Yellow Urine Clarity Cancelled Clear Urine pH Cancelled 6.0 Ur Specific [place] Cancelled 1.015 U Specif Grav (Refrac) Cancelled Urine Protein Cancelled Negative Urine Glucose (UA) Cancelled Normal Urine Ketones Cancelled Negative Urine Occult Blood Cancelled 10 H Urine Nitrite Cancelled Negative Urine Bilirubin Cancelled Negative Urine Urobilinogen Cancelled Normal Ur Leukocyte Esterase Cancelled Negative Urine RBC Cancelled 0-5 SEEN Urine WBC Cancelled 0 SEEN Ur Squamous Epith Cells Cancelled 0-5 SEEN Ur Transition Epith Cell Cancelled Ur Renal Epithelial Cell Cancelled Calcium Oxalate Crystal Cancelled Uric Acid Crystals Cancelled Triple Phos Crystals Cancelled Other Crystals Cancelled Amorphous Sediment Cancelled Urine Bacteria Cancelled 0 SEEN Hyaline Casts Cancelled Fine Granular Casts Cancelled Coarse Granular Casts Cancelled Waxy Casts Cancelled RBC Casts Cancelled WBC Casts Cancelled Urine Mucus Cancelled 0 SEEN Urine Trichomonas Cancelled Urine Yeast Cancelled Discharge Plan Triage Chief Complaint: Other, Pain/Inj ED Provider: Jerri Lpoes Dx/Rx/DC Orders Clinical Impression: Contusion of rib on left side Instructions: ED Rib Contusion or Minor Fracture Prescriptions: New hydrocodone-acetaminophen 5-325 mg tablet 1 tab PO Q6H PRN (Reason: pain) 3 Days Qty: 12 RF: 0 No Action trazodone 50 MG tablet 50 mg PO QHS RF: 0 cyanocobalamin (vitamin B-12) 1,000 MCG tablet 1,000 mcg PO DAILY RF: 0 alprazolam 0.5 MG tablet 0.25 mg PO BID RF: 0 meclizine 25 MG tablet 25 mg PO Q6H PRN PRN (Reason: Dizziness) RF: 0 levothyroxine 50 MCG tablet 50 mcg PO QHS RF: 0 docusate sodium 100 MG capsule 100 mg PO DAILY PRN (Reason: Constipation) RF: 0 gabapentin 300 MG capsule 600 mg PO QHS RF: 0 gabapentin 300 MG capsule 300 mg PO BID RF: 0 pyridoxine (vitamin B6) 100 MG tablet 100 mg PO DAILY RF: 0 fluoxetine 20 MG capsule 20 mg PO DAILY RF: 0 cholecalciferol (vitamin D3) 1,000 UNIT capsule 1,000 unit PO DAILY RF: 0 escitalopram oxalate 20 MG tablet 20 mg PO BID RF: 0 bupropion HCl 300 MG tablet extended release 24 hr 300 mg PO DAILY RF: 0 naproxen sodium 220 MG tablet 220 mg PO Q12H PRN PRN (Reason: Pain) RF: 0 L.acidophgregB. lactis 1 EACH capsule 1 ea PO DAILY RF: 0 ferrous sulfate 325 mg (65 mg iron) tablet 325 mg PO DAILY RF: 0 oxybutynin chloride 10 mg tablet extended release 24hr 10 mg PO DAILY RF: 0 Primary Care Provider: Fox Xiao Referrals: Fox Xiao MD [Primary Care Provider] - Activity Restrictions/Additional Instructions: Use incentive spirometer every hour to prevent pneumonia. Use 4% lidocaine patches for pain. Disposition Disposition: Home, Self Care Discharge Date/Time: 10/29/20 18:00
[2020-10-29] MEDS: Lidocaine 5% Patch 1 PATCH TOPICAL (15:40)
[2020-10-29 16:14] LABS: Bacteria 0 SEEN /hpf (None Seen); Mucous, Urine 0 SEEN /hpf (<or=2+); White Blood Cells 0 SEEN /hpf (0-5)
[2020-10-29 16:29] LABS: Color, Urine Yellow (Yellow); Glucose, Dipstick Normal (Normal); Ketone-Dipstick Negative (Negative); Leukocyte Esterase-Dipstick Negative /ul (Negative); Nitrite-Dipstick Negative (Negative); Occult Blood-Urine 10 /ul (Negative); Protein-Dipstick Negative (Negative); Specific Gravity, Urine 1.015 (1.002-1.030); Urine Bilirubin Dipstick Negative (Negative); Urine Clarity Clear (Clear); Urine Urobilinogen Normal (Normal)
[2020-10-29 16:37] LABS: Red Blood Cells-Urine 0-5 SEEN /hpf (0-5); Squamous Epithelial Cells - UA 0-5 SEEN /hpf (5-10)
[2020-10-29] MEDS: HYDROcodone Bitartrate/Apap 5/325 Tablet PO (17:35)
== END 2020-10-29 18:00 | disposition home or self-care (01) ==
PROVIDERS: Emergency Provider Emergency Medicine; PCP Family Medicine
DX: S20.212A Contusion of left front wall of thorax, initial encounter (principal); F41.9 Anxiety disorder, unspecified; F32.9 Major depressive disorder, single episode, unspecified; E03.9 Hypothyroidism, unspecified; Z79.899 Other long term (current) drug therapy; W01.190A Fall on same level from slipping, tripping and stumbling with subsequent striking against furniture, initial encounter; Y93.01 Activity, walking, marching and hiking; Y92.008 Other place in unspecified non-institutional (private) residence as the place of occurrence of the external cause; Y99.8 Other external cause status
CPT/HCPCS: 81001; 99251; 99282; G0463

== ENCOUNTER 2021-04-27 15:09 | Outpatient (RCR) | payer MEDICARE, SELFPAY ==
--- NOTE | 2021-04-27 16:27 | HP.PTEVAL ---
Patient's Visit Information GURMEET MOSHER is a 61 year old F referred to Physical Therapy by NEDA RICE with a diagnosis of MUTIPLE SCLEROSIS ,ABNORMALITY OF GAIT ,FALLS FREQUENTLY. Date of Evaluation: 04/27/21 Physical Therapist: Laci Brito, PT, Cert MDT, OCS - Visit Plan Frequency: 2x /Week Duration: 4 Weeks Plan: PRECAUTION CAM BOOT FOR METATRSEL FRACTURE PLAN TO SEE DR TRAN END OF MONTH. PT INTERVETIONS GAIT TRAINING,BALANCE TRAINING ,STRENGTHENING BLE AND FUNCTIONAL STRENGTHENING. PATIENT WILL BENEFIT FROM UPRIGHT WALKER DUE TO WEAKNESS, MS,FREQUENT FALLS THUS WILL ASSIST WITH POSTURE AND PREVENT FALLS - Subjective This 61 y/o female presents to physical therapy with multiple sclerosis ,abnormality of gait and frequent falls. Patient has had frequent falls most recent today bending over and eventually fell backwards. Recently, seen and recommended PT and upright walker. Patient Jan. 2020 fell OOB hit foot on bed frame caused to have metatarsal fracture, Seen Mary with WBAT with boot and walking sticks. Patient has had MS since 1980 but had symptoms prior for ~40 years. Currently ,has w/c manual and uses walking sticks. Patient has 2story home entrance with 2 hand rails 12 STEPS. Tub/shower setup. Patient is able to bath dressing, cooking/cleaning. C/O paresthesia entire body worse on right side. Patient sleeps well. Patient has had prior PT. Patient condition affects QOL and function and risk of falls. Patient recently diagnosed with osteoporosis. Patient pushed w/c in the home. SOCIAL: . VOCATION: retired - Pain Right Foot Pain Intensity (Out of 10): 1 Pain Intensity Range: 10 - Objective POSTURE: mild forward. NEURO: c/o paresthesia/tingling entire body, reflexes L3-4,L4-L5,L5-S1 3/3,light touch intact. GAIT: ambulates with 2 walking sticks 2point gait slow gala mid forward posture and CAM Boot. BALANCE: fair +. AROM BUE: WFL. MMT: BUE grossly 4-/5 shoulders/triceps/biceps /wrist flexion/extensors ,quads/hams/hip flexion 4-/5, hip abduction 3+/5. STAIRS: one step at time with rails - Balance/Special Test Scores CATSIB Score (Max score 120 seconds): 40 Lower Extremity Functional Score: 23 - Goals Goal 1:: I with HEP for balance /strengthening Goal Time Frame: 4-6 Weeks Goal 2:: Patient to increase strength by 4/5 to improve function and decrease risk of falls. Goal Time Frame: 4-6 Weeks Goal 3:: Patient to improve LFES score by 5 points to decrease of falls Goal Time Frame: 4-6 Weeks Goal 4:: Patient to improve CATSIB score by 5 points to decrease risk of falls. Goal Time Frame: 4-6 Weeks Goal 5:: Patient to demonstrate 50% improvement with overall function Goal Time Frame: 4-6 Weeks - Rehabilitation Potential Physical Therapy Diagnosis: Patient has complexity issues with multiple sclerosis with decrease gait ,frequent falls , weakness and will benefit from upright posture to assist with maintaining good posture and decrease risk of falls thus benefit from skilled PT Rehabilitation Potential: Good - Anticipated Interventions Patient/Client Instruction: Educate patient on: Condition, Plan of Care For the Purpose of:: To improve muscle performance and motor function, To improve ability to perform ADL's, To increase tolerance to activity/condition/position, To improve performance and independence with ADL's, To improve ability of physical actions for home/community/work/leisure, To improve gait and locomotor functions, To increase flexibility/ROM, To improve endurance, To improve balance Therapeutic Exercise to Include: Strength training, Endurance training, Balance training, Gait and locomotor training, Active ROM Comment: BLE For the Purpose of:: To decrease pain, To improve muscle performance and motor function, To improve ability to perform ADL's, To increase tolerance to activity/condition/position, To improve ability of physical actions for home/community/work/leisure, To improve gait and locomotor functions, To decrease soft tissue restriction, To increase flexibility/ROM, To improve endurance, To improve balance Thank you for the opportunity to evaluate your patient. For Medicare and Medicare HMO plans, please review the plan of care and approve it. It will need to be FAXED BACK to us at [phone] for Medicare purposes. For Medicare only, by signing this I certify the plan of care. Please let me know if there are questions or concerns regarding this plan of care. Physician Signature: Date:
== END 2021-04-27 19:00 | disposition home or self-care (01) ==
LOC: PT 15:09
PROVIDERS: PCP Family Medicine
DX: G35 Multiple sclerosis (principal); R26.9 Unspecified abnormalities of gait and mobility; R29.6 Repeated falls
CPT/HCPCS: 97162

== ENCOUNTER → 2022-01-09 | Outpatient (CLI) | payer MEDICARE, SELFPAY ==
[2022-01-09 17:45] LABS: Absolute Lymphocyte Count 0.77 X10^3/uL (0.83-4.51); Absolute Neutrophil Count 1.8 X10^3/uL (2.0-7.7); Basophil# 0.03 X10^3/uL; Basophil% 0.9 % (0-1); Eosinophil# 0.14 X10^3/uL; Eosinophils% 4.3 % (0-5); Hematocrit 37.8 % (37-47); Hemoglobin 12.6 g/dL (12.0-15.0); Lymphocyte # 0.77 X10^3/ul (0.83-4.51); Lymphocyte % 23.6 % (19-41); Mean Corp Hgb Conc 33.3 g/dL (32-36); Mean Corpuscular Hgb 31.6 pg (27.0-32.0); Mean Corpuscular Volume 94.7 fL (81-99); Mean Platelet Vol. 10.7 fl (6.2-12.0); Monocyte# 0.49 X10^3/uL; NRBC Flagged by Analyzer 0 % (0-5); Neutrophil # 1.83 X10^3/uL (2.7-7.7); Neutrophil % 56.2 % (47-70); Platelet Count 238 K/mm3 (150-450); RBC Distribution Width CV 11.9 % (11.6-14.6); RBC Distribution Width SD 41.8 fl (35.1-43.9); Red Blood Count 3.99 M/mm3 (4.2-5.4); White Blood Count 3.3 K/mm3 (4.4-11.0)
[2022-01-09 18:26] LABS: ALB/GLOB Ratio 1.2 RATIO (0.9-2.4); AST(SGOT) 23 U/L (15-37); Alanine Aminotransfer ALT/SGPT 27 U/L (13-56); Albumin, Serum 3.7 g/dL (3.2-5.0); Alkaline Phosphatase 54 U/L (45-117); Anion Gap 5 (5-15); BUN 13 mg/dL (7-18); BUN/Creat Ratio 15.8 RATIO (10-20); Calcium,Total 8.9 mg/dL (8.5-10.1); Chloride 105 mmol/L (98-107); Creatinine, Serum 0.82 mg/dL (0.55-1.02); EST Glomerular Filtration Rate 74 mL/min (>60); Est Glom Filt Rate - Afr Amer 90 mL/min (>60); Globulin 3.1 g/dL (2.2-4.2); Glucose 101 mg/dL (74-106); Potassium 4.2 mmol/L (3.5-5.1); Protein, Total 6.8 g/dL (6.4-8.2); Sodium Level 140 mmol/L (136-145)
== END | disposition home or self-care (01) ==
LOC: MFPLAB 17:03
PROVIDERS: PCP Family Medicine; Referring Provider Family Medicine; Visit Provider Family Medicine
DX: Z01.818 Encounter for other preprocedural examination (principal)
CPT/HCPCS: 36415; 80053; 85025

== ENCOUNTER → 2022-01-25 | Outpatient (CLI) | payer MEDICARE, SELFPAY ==
--- NOTE | 2022-01-25 15:29 | US_ITS ---
INDICATION: BLADDER RETENTION EXAMINATION: US Kidney(s) complete (eg, kidneys and bladder) TECHNIQUE: Escamilla scale and color doppler images were obtained of the kidneys. COMPARISON: None. FINDINGS: RIGHT KIDNEY: Atrophic measuring 7.8 cm in length and demonstrates a thinning cortex. There is no hydronephrosis. No shadowing calculus, focal lesion or perinephric collection is demonstrated. LEFT KIDNEY: Measures 9.1 cm in length. There is no hydronephrosis. No shadowing calculus, focal lesion or perinephric collection is demonstrated. URINARY BLADDER: No acute abnormality. Post void volume greater than prevoid volume as patient was unable to void. US/Kidney and Bladder IMPRESSION: Atrophic right kidney. Otherwise no evidence of hydronephrosis. Post void bladder volume greater than prevoid volume as patient was unable to void. Electronically Signed: Brandon Condon MD at 0:01 EDT ,
== END | disposition home or self-care (01) ==
PROVIDERS: PCP Family Medicine; Referring Provider Urology; Visit Provider Urology
DX: N31.9 Neuromuscular dysfunction of bladder, unspecified (principal); D22.0 Melanocytic nevi of lip
CPT/HCPCS: 76770

== ENCOUNTER → 2022-02-05 | Outpatient (CLI) | payer MEDICARE, SELFPAY ==
[2022-02-05 17:37] LABS: Absolute Lymphocyte Count 0.96 X10^3/uL (0.83-4.51); Absolute Neutrophil Count 2.7 X10^3/uL (2.0-7.7); Basophil# 0.02 X10^3/uL; Basophil% 0.5 % (0-1); Eosinophil# 0.09 X10^3/uL; Eosinophils% 2.1 % (0-5); Hematocrit 39.7 % (37-47); Hemoglobin 12.9 g/dL (12.0-15.0); Lymphocyte # 0.96 X10^3/ul (0.83-4.51); Lymphocyte % 22.4 % (19-41); Mean Corp Hgb Conc 32.5 g/dL (32-36); Mean Corpuscular Hgb 31.2 pg (27.0-32.0); Mean Corpuscular Volume 96.1 fL (81-99); Mean Platelet Vol. 10.6 fl (6.2-12.0); Monocyte# 0.48 X10^3/uL; Monocyte% 11.2 % (0-10); NRBC Flagged by Analyzer 0 % (0-5); Neutrophil # 2.72 X10^3/uL (2.7-7.7); Neutrophil % 63.3 % (47-70); Platelet Count 249 K/mm3 (150-450); RBC Distribution Width CV 12.4 % (11.6-14.6); RBC Distribution Width SD 43.4 fl (35.1-43.9); Red Blood Count 4.13 M/mm3 (4.2-5.4); White Blood Count 4.3 K/mm3 (4.4-11.0)
[2022-02-05 18:19] LABS: ALB/GLOB Ratio 1.2 RATIO (0.9-2.4); AST(SGOT) 19 U/L (15-37); Alanine Aminotransfer ALT/SGPT 28 U/L (13-56); Alkaline Phosphatase 54 U/L (45-117); Anion Gap 5 (5-15); BUN 14 mg/dL (7-18); BUN/Creat Ratio 20.3 RATIO (10-20); Chloride 103 mmol/L (98-107); Creatinine, Serum 0.69 mg/dL (0.55-1.02); EST Glomerular Filtration Rate 91 mL/min (>60); Est Glom Filt Rate - Afr Amer 110 mL/min (>60); Globulin 3.3 g/dL (2.2-4.2); Glucose 86 mg/dL (74-106); Potassium 4.2 mmol/L (3.5-5.1); Protein, Total 7.3 g/dL (6.4-8.2); Sodium Level 140 mmol/L (136-145)
== END | disposition home or self-care (01) ==
LOC: MTLAB 16:35
PROVIDERS: PCP Family Medicine; Referring Provider Family Medicine; Visit Provider Family Medicine
DX: Z01.818 Encounter for other preprocedural examination (principal)
CPT/HCPCS: 36415; 80053; 85025

== ENCOUNTER 2022-02-11 12:49 | Day surgery (SDC) | payer MEDICARE, SELFPAY ==
[2022-02-11 13:15] VITALS: BP 108/49; PULSE 67; RESP 16; TEMP 36.9; O2SAT 100; BMI 15.4
[2022-02-11] MEDS: Lactated Ringers 1,000 ML 15 ML IV (13:23)
--- NOTE | 2022-02-11 13:45 | EGD_PTH ---
PATIENT: GURMEET MOSHER LOC: EN U#:[id number] AGE/SX: 61/F ROOM: RE02/11/[address]: Dr. Chun Smith MD : 1960 BED: DIS: 02/11/2022 SPEC #: [id number] RECD: 02/11/22 14:23 STATUS: JONAS REErma #: [id number] CRISTY: 02/11/22 13:[address]: Chun Smith DEPT: SURGICAL PATHOLOGY RECD BY: Kylie Anderson ENTERED: 02/12/22 09:29 SP TYPE: EGD BIOPSY OTHR DR: Dr. Fox Xiao MD Tissues: Gastric mucous membrane Procedures: Special Stain Group II Surgery Specimen Level IV Alcian Blue/PAS (control) HEADER OPERATION: [place] [place] PRE-OP DIAGNOSIS: Dysphagia, history of esophageal stenosis TISSUE SUBMITTED: Antrum biopsy for histo and H. pylori MICROSCOPIC DIAGNOSIS Gastric antrum, biopsy: Gastroesophageal junctional mucosa with chronic inflammation. Focal changes of reflux. No evidence of goblet cell metaplasia. See comment. AM:dennise 02/13/2022 COMMENT The results of immunohistochemistry for Helicobacter pylori will be reported separately ([id number]). MICROSCOPIC DESCRIPTION Slides are reviewed. GROSS DESCRIPTION Received in fixative is one container labeled with the patient's name and designated antrum biopsy. The specimen consists of two irregular fragments of light mccabe soft tissue that in aggregate measure 0.6 x 0.3 x 0.1 cm. The specimen is totally submitted in one cassette. / SJ:dennise 02/12/2022 TC:3 CPT: 25093, 97137
--- NOTE | 2022-02-11 13:45 | IMM_PTH ---
PATIENT: GURMEET MOSHER LOC: EN U#:[id number] AGE/SX: 61/F ROOM: RE02/11/[address]: Dr. Chun Smith MD : 1960 BED: DIS: 02/11/2022 SPEC #: [id number] RECD: 02/12/22 15:06 STATUS: JONAS REQ #: [id number] CRISTY: 02/11/22 13:[address]: Chun Smith DEPT: IMMUNOHISTOCHEMISTRY RECD BY: Franny Lee ENTERED: 02/12/22 15:06 SP TYPE: IMMUNO OTHR DR: Dr. Fox Xiao MD Tissues: Stomach, NOS Procedures: H Pylori (initial) PHYSICIAN & INSTITUTION [place] [id number] SPECIMEN INFORMATION: Tissue Source: Antrum biopsy Clinical Info: Dysphagia, history of esophageal stenosis Specimen Number: [id number] CPT code: 46064 METHODOLOGY: Deparaffinized sections of prefer/formalin-fixed tissue or PAP/DQ stained slides are incubated with monoclonal/polyclonal antibodies/oligonucleotide probes. Localization is made via biotin free immunoperoxidase method. Appropriate controls are performed and reacted as expected. Results on target cell population are indicated in the following table: RESULTS: ANTIBODY / CLONE RESULT H Pylori (polyclonal) negative These tests were developed and their performance characteristics determined by [facility]. They may not have been cleared or approved by the U.S. Food and Drug Administration. The FDA has determined that such clearance or approval is not necessary. The above immunohistochemical/dualISH markers are ordered and reviewed by the Pathologist. INTERPRETATION: Antrum, biopsy: Negative for Helicobacter pylori organisms. AM:dennise 02/13/2022
--- NOTE | 2022-02-11 13:50 | HP.PCM_ITS ---
History and Physical Date of Admission: 02/11/22 HISTORY AND PHYSICAL ? Farzana Caputo 1960 ? REFERRING PHYSICIAN: Fox Xiao MD ? CHIEF COMPLAINT: Consult (dysphagia) ? HPI: The patient is a 61 year old female referred for endoscopy. Farzana notes increasing dysphagia over the last few months. Patient states she goes through these symptoms every few years and they are relieved after undergoing EGD procedure. Patient denies any change in bowel habits, weight changes, blood in stools, black tarry stools or abdominal pain. ? Farzana has undergone prior endoscopy. She had had previous EGDs by Dr. Reyez in 2019 with finding of normal esophagus, Dr. Malcolm in 2016 with findings of esophagitis but no stricture, and prior to that had EGD by Dr. Baird 03/04/13 with findings of a benign-appearing stricture which was traversed with the scope. ? Patient's past medical history is significant for multiple sclerosis, seizures, anxiety, congenital tracheoesophageal fistula. She follows with Dr. Xiao in primary care. Denies problems with sedation in the past. ? ? PAST MEDICAL HISTORY PAST MEDICAL HISTORY Diagnosis Date ? Abdominal pain, epigastric 02/26/2008 ? Abdominal pain, unspecified site ? ? Acute gastritis without mention of hemorrhage 04/21/2008 ? Anxiety state, unspecified ? ? Cervical spondylosis without myelopathy 08/07/2012 ? Cervicalgia 08/12/2012 ? Chronic rhinitis 03/04/2017 ? Dr. thao: receiving allergy shots for dust and a few others ? Concussion 08/2010 ? Congenital tracheoesophageal fistula, esophageal atresia and stenosis ? ? Depressive disorder, not elsewhere classified ? ? Disturbance of skin sensation ? ? precancerous mole. ? Dysphagia, unspecified(787.20) ? ? Enthesopathy of hip region 10/23/2005 ? Multiple sclerosis (HCC) ? ? Nausea alone ? ? Seizures (HCC) ? ? Urinary tract infection, site not specified ? ? ? PAST SURGICAL HISTORY PAST SURGICAL HISTORY Procedure Laterality Date ? COLONOSCOPY FLX DX W/COLLJ SPEC WHEN PFRMD ? 02/12/2012 ? Colonoscopy ? COLONOSCOPY W/BIOPSY SINGLE/MULTIPLE ? 05/21/2016 ? EGD TRANSORAL BIOPSY SINGLE/MULTIPLE ? 04/21/08 ? EGD TRANSORAL BIOPSY SINGLE/MULTIPLE ? 05/21/2016 ? gastritis ? ESOPHAGOGASTRODUODENOSCOPY TRANSORAL DIAGNOSTIC ? 04/04/2011 ? EGD ? ESOPHAGOGASTRODUODENOSCOPY TRANSORAL DIAGNOSTIC ? 03/04/2013 ? EGD ? ESOPHAGOGASTRODUODENOSCOPY TRANSORAL DIAGNOSTIC ? 09/21/2018 ? EGD ? PAST SURGICAL HISTORY OF ? 07/2003 ? Oral surgery ? PAST SURGICAL HISTORY OF ? ? ? EXCISION FROM BEHIND LEFT KNEE PRECANCER ? PAST SURGICAL HISTORY OF Right 03/28/2017 ? Arthrodesis of 2nd, 3rd, and 4th toes ? WEDGE EXCISION SKIN NAIL FOLD ? 04/01/2011 ? ? ? CURRENT MEDICATIONS Current Outpatient Medications Medication Sig ? traZODone (DESYREL) 50 mg tablet Take 1 tablet by mouth daily at bedtime. ? ferrous sulfate 325 mg (65 mg iron) tablet Take 1 tablet by mouth once daily. ? levothyroxine (SYNTHROID) 50 mcg tablet Take 1 tablet by mouth daily before breakfast. ? Cholecalciferol, Vitamin D3, 25 mcg (1,000 unit) cap Take 1 capsule by mouth once daily. ? cyanocobalamin (VITAMIN B-12) 1,000 mcg tab Take 1 tablet by mouth once daily. ? gabapentin (NEURONTIN) 300 mg capsule TAKE 1 CAPSULE BY MOUTH ONCE DAILY IN THE MORNING, 1 CAP IN THE AFTERNOON, AND 2 CAPS AT NIGHT ? cephALEXin (KEFLEX) 250 mg capsule Take 1 capsule by mouth daily at bedtime. ? pantoprazole DR (PROTONIX) 20 mg tablet Take 1 tablet by mouth once daily. ? FLUoxetine (PROZAC) 20 mg capsule Take 1 capsule by mouth once daily. ? oxybutynin ER (DITROPAN XL) 10 mg 24 hr tablet ? ? ocrelizumab (OCREVUS INTRAVENOUS) Inject intravenously once every 6 months. ? buPROPion XL (WELLBUTRIN XL) 300 mg 24 hr tablet Take 300 mg by mouth once daily. ? PROBIOTIC 20 billion cell cpSP TAKE 1 CAPSULE BY MOUTH TWICE DAILY. ? Catheter misc 12 FR Use once daily as needed for retention. prelubricated ? loperamide (IMODIUM) 2 mg cap(s) Take 1 capsule by mouth twice daily as needed. ? meclizine (ANTIVERT) 25 mg tab Take 1 tablet by mouth every 6 hours as needed. FOR DIZZINESS ? ALPRAZolam (XANAX) 0.25 mg tablet 2x day ? escitalopram oxalate (LEXAPRO) 20 mg tablet Take 1 tablet by mouth twice daily. ? docusate sodium (COLACE) 100 mg capsule Take 1 capsule by mouth once daily as needed. ? pyridoxine hcl(VITAMIN B-6 100 MG TAB) Take by mouth. ? ? ALEVE 220 MG TAB prn ? levothyroxine (SYNTHROID) 50 mcg tablet Take 1 tablet by mouth daily before breakfast. ? Current Facility-Administered Medications Medication Dose Route Frequency ? denosumab 60 mg injection (PROLIA) 60 mg SUBCUTANEOUS As Directed ? ? ALLERGIES: [place] Souris, Sulfa (Sulfonamide Antibiotics), Adhesive Tape (Rosins), and Fish Oil ? PERSONAL HISTORY: SOCIAL HISTORY Social History ? Tobacco Use ? Smoking status: Never ? Smokeless tobacco: Never Vaping Use ? Vaping Use: Never used Substance Use Topics ? Alcohol use: No ? Drug use: No ? ? FAMILY HISTORY: FAMILY HISTORY FAMILY HISTORY Problem Relation Age of Onset ? Hypertension Mother ? ? Heart Mother ? ? BYPASS ? Arthritis Mother ? ? Diabetes Mother ? ? Cancer Mother ? ? skin cancer ? Heart Father ? ? needs a valve replaced. ? Stroke Father ? ? TIA ? Thyroid Father ? ? Cancer Father ? ? Lung ? other (ibs) Father ? ? Cancer Paternal Grandmother ? ? uncertain of primary site ? Cancer Paternal Grandfather ? ? throat ? ? REVIEW OF SYMPTOMS: The review of systems data was entered by the nurse and reviewed by me ? Nursing Notes: Gerda Timmons RN 12/31/2021 9:05 AM Signed REVIEW OF SYSTEMS: General: The patient denies fatigue, denies weight loss, denies weight gain, denies feeling hot, and denies feelings of cold. Eyes: The patient NOTES glaucoma, denies eye injury/surgery, wears glasses or contacts. Ear/Nose/Throat: The patient NOTES allergies, denies hayfever, denies ear infections, and denies bloody noses. Cardiovascular: The patient denies chest pain, denies heart disease, denies high blood pressure,denies cardiac stent, denies prior heart attack, denies irregular heart beat, denies high cholesterol, denies poor circulation, denies heart failure, other cardiac issues, denies claudication, denies cold feet, denies peripheral arterial stent. Respiratory: The patient denies tuberculosis, denies pneumonia, denies frequent cough, denies pulmonary embolism, denies shortness of breath, and denies coughing up blood. Gastrointestinal: The patient NOTES difficulty swallowing, denies acid reflux, denies ulcers, denies vomiting, denies jaundice/hepatitis, denies gallbladder problems, denies black or tarry stools, denies hemorrhoids, denies bleeding from rectum, denies diverticulitis, NOTES constipation, NOTES diarrhea, denies loss of stool control, and denies hernias. Kidney/Bladder: The patient denies kidney stones, NOTES urine infections, and denies bloody urine. Skin: The patient denies a history of skin cancer, denies bleeding/valente nging moles, and denies a history of skin rash. Neurologic: The patient denies a history of epilepsy/convulsions, denies headaches, denies head/spinal injuries, and denies stroke/TIA. Psychiatric: The patient denies psychiatric medications, NOTES depression, and denies voices, denies substance abuse. Endocrine: The patient NOTES thyroid disorders, denies diabetes, and denies hormonal problems. Hematologic: The patient denies a history of bruising, denies bleeding, and denies anemia, denies blood clots. Infections: The patient NOTES a history of measles and mumps, denies rheumatic fever, and denies sexually transmitted diseases. Musculoskeletal: The patient denies back pain/injury, denies back problems, denies sciatica, denies knee/foot trouble, denies arthritis, or denies gout. ? ? When was patient's last Mammogram screening? 2020 ? Last Colonoscopy: 2016 ? Gerda Timmons RN I have confirmed and edited as necessary, the PFSH and ROS obtained by others. Haley Reyes PA-C ? PHYSICAL EXAMINATION: ? General: The patient is 61 year old female, well nourished, well hydrated in no acute distress. The patient is oriented to time, place, and person. ? VITALS: Blood pressure 98/62, pulse 65, temperature 36.1 ?C (97 ?F), height 160 cm (5' 3), weight 40.4 kg (89 lb), last menstrual period 09/20/2010, SpO2 100 %. Body mass index is 15.77 kg/m?. ? HEENT: Normal cephalic, ataumatic, pupils are equally round, sclera are anicteric, mucous membranes are moist, oropharynx is clear. Neck has no masses, asymmetry or lymphadenopathy. ? Respiratory: Clear to auscultation and percussion. Normal respiratory excursion and pattern. ? Cardiac: Examination is regular rate and rhythm. Normal S1/S2 ? Abdominal exam: Soft, nontender, with no palpable masses. No hepatosplenomegaly. No palpable hernias. ? Extremities: no clubbing, cyanosis or edema. No adenopathy. ? LABORATORY VALUES: As Noted ? RADIOLOGIC STUDIES: As Noted ? ? Assessment IMPRESSION: dysphagia, history of esophageal stenosis. History of multiple sclerosis ? PLAN: ? Discussed referral to esophageal specialist based on patient's symptoms and history-she declines and wishes to proceed with one of our general surgeons locally ? I have reviewed my findings with Dr. Smith. Will plan for upper endoscopy with possible balloon dilation. We discussed the risks and benefits of the planned endoscopy. I have informed the patient that complications can occur including failure to complete the endoscopy and perforation. The patient had the opportunity to ask questions concerning the planned endoscopy. My staff has also explained the procedure to the patient in understandable terms and has given the patient printed material concerning the procedure. The patient freely consents to surgery. ? The patient was offered a surgery/procedure at a [facility] facility. I have counseled the patient regarding the risk of exposure to and/or potential harm posed by the COVID-19 virus with having a surgery/procedure at this time versus the risk of? delaying the surgery/procedure. It is not possible to know either the risk of delaying the surgery or procedure or chance of getting an infection with perfect accuracy, but a joint decision was made between the patient and myself?to proceed at this time with endoscopy. ? We will plan for Monitored Anesthetic Care ? ? ? Diagnoses: (G35) Multiple sclerosis (HCC) (primary encounter diagnosis) (R13.10) Dysphagia, unspecified type (Q39.1, Q39.3) Tracheoesophageal fistula, esophageal atresia and stenosis, con genital ? Consultation requested by Dr. Xiao for an opinion regarding dysphagia. My final recommendations will be communicated back to the requesting physician by way of shared Medical record or letter to requesting physician via US mail. Haley Reyes PA-C I have examined the patient and the H&P has been reviewed. There are no clinical changes since date of exam.
[2022-02-11 14:10] VITALS: BP 108/49; BP 96/60; PULSE 64; RESP 16; TEMP 36.7; O2SAT 100
--- NOTE | 2022-02-11 14:12 | OP.EGD_ITS ---
Patient Name: Farzana Caputo Procedure Date: 02/11/2022 1:51 PM Date of : 1960 Age: 61 Procedure: Upper GI endoscopy Indications: Dysphagia Providers: Chun Smith MD Referring MD: Fox Xiao Medicines: See the Anesthesia note for documentation of the administered medications Patient Profile: This is a 61 year old female. Refer to note in patient chart for documentation of history and physical. Complications: No immediate complications. Estimated blood loss: Minimal. Procedure: Pre-Anesthesia Assessment: - Prior to the procedure, a History and Physical was performed, and patient medications and allergies were reviewed. The patient's tolerance of previous anesthesia was also reviewed. The risks and benefits of the procedure and the sedation options and risks were discussed with the patient. All questions were answered, and informed consent was obtained. Prior Anticoagulants: The patient has taken no previous anticoagulant or antiplatelet agents. ASA Grade Assessment: II - A patient with mild systemic disease. After reviewing the risks and benefits, the patient was deemed in satisfactory condition to undergo the procedure. After obtaining informed consent, the endoscope was passed under direct vision. Throughout the procedure, the patient's blood pressure, pulse, and oxygen saturations were monitored continuously. The gastroscope was introduced through the mouth, and advanced to the second part of duodenum. The upper GI endoscopy was accomplished without difficulty. The patient tolerated the procedure well. Scope In: 2:01:38 PM Scope Out: 2:05:20 PM Total Procedure Duration Time 0 hours 3 minutes 42 seconds Findings: The nasopharynx was normal. The Z-line was regular and was found 41 cm from the incisors. Biopsies were taken with a cold forceps for histology. Localized minimal inflammation characterized by erythema was found in the prepyloric region of the stomach. Biopsies were taken with a cold forceps for Helicobacter pylori testing. The examined duodenum was normal. No biopsies or other specimens were collected for this exam. Impression: - Normal nasopharynx. - Z-line regular, 41 cm from the incisors. Biopsied. - Gastritis. Biopsied. - Normal examined duodenum. No specimens collected. Recommendation: - Patient has a contact number available for emergencies. The signs and symptoms of potential delayed complications were discussed with the patient. Return to normal activities tomorrow. Written discharge instructions were provided to the patient. - Resume previous diet. - Continue present medications. - Await pathology results. - Repeat upper endoscopy PRN for surveillance. - Return to physician outpatient physical therapist assistant in 1 week. Procedure Code(s): --- Professional --- 58184, Esophagogastroduodenoscopy, flexible, transoral; with biopsy, single or multiple Diagnosis Code(s): --- Professional --- K29.70, Gastritis, unspecified, without bleeding R13.10, Dysphagia, unspecified CPT copyright 2017 [employer]. All rights reserved. The codes documented in this report are preliminary and upon wood casket maker review may be revised to meet current compliance requirements. MD Chun Babb MD 02/11/2022 2:12:04 PM This report has been signed electronically. Number of Addenda: 0 Note Initiated On: 02/11/2022 1:51 PM
--- NOTE | 2022-02-11 14:13 | OP.CCLET_ITS ---
02/11/2022 Fox Xiao Re : Upper GI endoscopy procedure for Farzana King [place] This procedure was performed on Friday, February 11, 2022. My impressions and recommendations are as follows: Impressions : - Normal nasopharynx. - Z-line regular, 41 cm from the incisors. Biopsied. - Gastritis. Biopsied. - Normal examined duodenum. No specimens collected. Recommendations : - Patient has a contact number available for emergencies. The signs and symptoms of potential delayed complications were discussed with the patient. Return to normal activities tomorrow. Written discharge instructions were provided to the patient. - Resume previous diet. - Continue present medications. - Await pathology results. - Repeat upper endoscopy PRN for surveillance. - Return to physician campaign assistant in 1 week. My findings are described in the full procedure note, which is enclosed. If I can be of further assistance, please feel free to contact me at Doctor phone number(s): , Work: . Sincerely, MD Chun Babb MD 02/11/2022 2:12:04 PM This report has been signed electronically.
[2022-02-11 14:15] VITALS: BP 108/49; BP 94/55; PULSE 63; RESP 16; O2SAT 100
[2022-02-11 14:20] VITALS: BP 108/49; BP 94/59; PULSE 65; RESP 16; O2SAT 100
[2022-02-11 14:30] VITALS: BP 108/49; BP 111/61; PULSE 60; RESP 16; TEMP 37.2; O2SAT 100
[2022-02-11 14:47] VITALS: BP 108/49
== END 2022-02-11 15:12 | disposition home or self-care (01) ==
LOC: EN 12:50 → AC 12:53
PROVIDERS: PCP Family Medicine; Referring Provider Family Medicine; Visit Provider Surgery
PROC: 0DJ08ZZ Inspection of Upper Intestinal Tract, Via Natural or Artificial Opening Endoscopic (ICD-10-PCS; CPT 43235; principal; 2022-02-11 13:40)
DX: K31.89 Other diseases of stomach and duodenum (principal); G35 Multiple sclerosis; K29.70 Gastritis, unspecified, without bleeding; M99.01 Segmental and somatic dysfunction of cervical region; M99.03 Segmental and somatic dysfunction of lumbar region; M99.05 Segmental and somatic dysfunction of pelvic region; M99.02 Segmental and somatic dysfunction of thoracic region; F41.9 Anxiety disorder, unspecified; E03.9 Hypothyroidism, unspecified; Z79.899 Other long term (current) drug therapy
CPT/HCPCS: 43239; 88305; 88313; 88342; J7120; J2405

== ENCOUNTER 2022-03-06 16:33 | Outpatient (CLI) | payer MEDICARE, SELFPAY ==
[2022-03-06 17:57] LABS: Absolute Lymphocyte Count 1.07 X10^3/uL (0.83-4.51); Absolute Neutrophil Count 6.7 X10^3/uL (2.0-7.7); Basophil# 0.04 X10^3/uL; Basophil% 0.5 % (0-1); Eosinophil# 0.13 X10^3/uL; Eosinophils% 1.5 % (0-5); Hematocrit 38.8 % (37-47); Hemoglobin 12.5 g/dL (12.0-15.0); Lymphocyte # 1.07 X10^3/ul (0.83-4.51); Lymphocyte % 12.1 % (19-41); Mean Corp Hgb Conc 32.2 g/dL (32-36); Mean Corpuscular Hgb 30.8 pg (27.0-32.0); Mean Corpuscular Volume 95.6 fL (81-99); Monocyte% 10.2 % (0-10); NRBC Flagged by Analyzer 0 % (0-5); Neutrophil # 6.71 X10^3/uL (2.7-7.7); Neutrophil % 75.6 % (47-70); Platelet Count 243 K/mm3 (150-450); RBC Distribution Width CV 11.9 % (11.6-14.6); RBC Distribution Width SD 41.4 fl (35.1-43.9); Red Blood Count 4.06 M/mm3 (4.2-5.4); White Blood Count 8.9 K/mm3 (4.4-11.0)
[2022-03-06 18:27] LABS: ALB/GLOB Ratio 1.4 RATIO (0.9-2.4); AST(SGOT) 25 U/L (15-37); Alanine Aminotransfer ALT/SGPT 28 U/L (13-56); Albumin, Serum 3.9 g/dL (3.2-5.0); Alkaline Phosphatase 52 U/L (45-117); Anion Gap 5 (5-15); BUN 17 mg/dL (7-18); BUN/Creat Ratio 22.5 RATIO (10-20); Calcium,Total 9.2 mg/dL (8.5-10.1); Chloride 102 mmol/L (98-107); Creatinine, Serum 0.75 mg/dL (0.55-1.02); EST Glomerular Filtration Rate 82 mL/min (>60); Est Glom Filt Rate - Afr Amer 100 mL/min (>60); Globulin 2.8 g/dL (2.2-4.2); Glucose 78 mg/dL (74-106); Potassium 4.1 mmol/L (3.5-5.1); Protein, Total 6.7 g/dL (6.4-8.2); Sodium Level 139 mmol/L (136-145)
== END 2022-03-06 23:59 | disposition home or self-care (01) ==
PROVIDERS: PCP Family Medicine; Referring Provider Family Medicine; Visit Provider Family Medicine
DX: Z01.818 Encounter for other preprocedural examination (principal); N39.0 Urinary tract infection, site not specified
CPT/HCPCS: 36415; 80053; 85025

== ENCOUNTER → 2022-03-07 | Outpatient (CLI) | payer MEDICARE, SELFPAY | END | disposition home or self-care (01) | LOC: MTLAB 07:01 | PROVIDERS: PCP Family Medicine; Referring Provider Urology; Visit Provider Urology | DX: N39.0 Urinary tract infection, site not specified (principal) | CPT/HCPCS: 87086; 87088 ==

== ENCOUNTER → 2022-03-14 | Outpatient (CLI) | payer MEDICARE, SELFPAY ==
[2022-03-14 18:04] LABS: Color, Urine Yellow (Yellow); Glucose, Dipstick Normal (Normal); Ketone-Dipstick Negative (Negative); Leukocyte Esterase-Dipstick 500 /ul (Negative); Nitrite-Dipstick Positive (Negative); Occult Blood-Urine 250 /ul (Negative); Protein-Dipstick 100 mg/dl (Negative); Urine Bilirubin Dipstick Negative (Negative); Urine Clarity Turbid (Clear); Urine Urobilinogen Normal (Normal)
== END | disposition home or self-care (01) ==
PROVIDERS: PCP Family Medicine; Referring Provider Urology; Visit Provider Urology
DX: N39.0 Urinary tract infection, site not specified (principal); R35.0 Frequency of micturition
CPT/HCPCS: 81002; 87086; 87088; 87186

== ENCOUNTER 2022-03-29 06:04 | Day surgery (SDC) | payer MEDICARE, SELFPAY ==
[2022-02-22 06:34] VITALS: BP 105/70; PULSE 57; RESP 16; TEMP 37.2; O2SAT 100; BMI 15.2
[2022-02-22] MEDS: Lactated Ringers 1,000 ML 15 ML IV (06:45)
[2022-02-22 07:30] LABS: Thyroid Stim Hormone (TSH) 8.13 uIU/mL (0.358-3.74)
[2022-03-29] VITALS (8 sets, daily range): BP systolic 102–119; BP diastolic 46–82; PULSE 58–78; RESP 16; TEMP 36.9–37.6; O2SAT 95–100; BMI 33.5
[2022-03-29] MEDS: Lactated Ringers 1,000 ML 15 ML IV (06:52)
--- NOTE | 2022-03-29 07:30 | BON_PTH ---
PATIENT: GURMEET MOSHER LOC: [facility] [place] U#:[id number] AGE/SX: 61/F ROOM: RE03/29/[address]: Dr. Catracho Hernandez DPM : 1960 BED: DIS: 03/29/2022 SPEC #: [id number] RECD: 04/01/22 08:39 STATUS: JONAS REErma #: [id number] CRISTY: 03/29/22 07:[address]: Catracho Hernandez DEPT: SURGICAL PATHOLOGY RECD BY: Kylie Anderson ENTERED: 04/01/22 10:41 SP TYPE: Bone OTHR DR: Dr. Loreto Son MD Tissues: Toe, NOS Procedures: Decalcification bone/plaque Surgery Specimen Level III HEADER OPERATION: Arthrodesis fusion of left first toe with hardware removal PRE-OP DIAGNOSIS: Deformed toes and hammertoe, left foot TISSUE SUBMITTED: First and second toe bone from interphalangeal joint MICROSCOPIC DIAGNOSIS First and second toe bone from interphalangeal joint: Pieces of bone with reactive changes, clinically deformed toes and hammertoe. JONATHAN:dennise 04/04/2022 MICROSCOPIC DESCRIPTION Slides are reviewed. GROSS DESCRIPTION Received in fixative is one container labeled with the patient's name and designated first and second toe bone from interphalangeal joint. The specimen consists of multiple fragments of bone that in aggregate measure 1.5 x 1.5 x 0.3 cm. The specimen is totally submitted in one cassette after decalcification. / JONATHAN:dennise 04/01/2022 TC:5 CPT: 41422, 82316
[2022-03-29] MEDS: Cefazolin 2 GM in 0.9% Normal Saline 100 ML IV (13:42)
[2022-03-29] MEDS: Bupivacaine Mpf 0.5% 30 ML VIAL (14:00)
--- NOTE | 2022-03-29 15:00 | RAD_ITS ---
STUDY: INTRAOPERATIVE FLUOROSCOPY TECHNIQUE: The examination was performed with referring physician in attendance. Under fluoroscopic observation, fluoroscopic images were obtained. Radiologist was not present for the study. Radiologist did not perform the procedure. This dictation is for documentation of the radiation dosage only. There is no interpretation of the images. TOTAL NUMBER OF IMAGES: 1 COMPARISON: None RADIATION DOSE: .27 mGy FLUOROSCOPY TIME: 0.59 minutes REASON FOR EXAM: PAIN Female, 61 years old. FINDINGS: Arthrodesis screws visualized in the second third and first digit. RAD/Toe(s) Min 2 Views IMPRESSION: Fluoroscopic assistance images were obtained. Dictation for documentation purposes only. Electronically Signed: Gerardo Cagle MD at 16:46 EST ,
--- NOTE | 2022-03-29 16:43 | DCINST_ITS ---
Discharge Instructions Diet Discharge Diet: Light diet - advance as tolerated Activity Weight Bearing Status: No weight bearing (No weightbearing left foot) Keep extremity elevated above heart level: Left Leg (Keep left foot evaluated for at least 50 minutes of every hour) Dressing / Incision Call your doctor if your incision/area has: Continuous Slow Oozing, Sudden Increased Bleeding and Foul Smelling Discharge Call your doctor if you observe: Fever of 101 or Higher, Shortness of breath, Chest pain, Increased palpitations (irregular heartbeat), Calf discomfort and Uncontrolled pain Change Dressing in: do not change dressing Remove Dressing in: do not remove dressing Cleanse incision/area with: Keep Dressing Clean & Dry Follow Up Care Please Follow Up With: Catracho Hernandez DPM When: 1 week, sooner if needed. Test Results: Test results from this visit will be discussed in further detail at your follow- up appointment, if applicable. Discharge Plan Admission Attending Provider: Catracho Hernandez Primary Care Provider: Loreto Son Discharge Orders/Prescriptions Prescriptions: New hydrocodone-acetaminophen 5-325 mg tablet 1 tab PO Q6H PRN (Reason: pain) 4 Days Qty: 24 0RF No Action trazodone 50 MG tablet 50 mg PO QHS cyanocobalamin (vitamin B-12) 1,000 MCG tablet 1,000 mcg PO DAILY alprazolam 0.5 MG tablet 0.25 mg PO BID meclizine 25 MG tablet 25 mg PO Q6H PRN PRN (Reason: Dizziness) levothyroxine 50 MCG tablet 50 mcg PO QHS docusate sodium 100 MG capsule 100 mg PO DAILY PRN (Reason: Constipation) gabapentin 300 MG capsule 300 mg PO QHS Label Comments: TAKES AT NOON gabapentin 300 MG capsule 300 mg PO BID pyridoxine (vitamin B6) 100 MG tablet 100 mg PO DAILY fluoxetine 20 MG capsule 20 mg PO DAILY cholecalciferol (vitamin D3) 1,000 UNIT capsule 1,000 unit PO DAILY escitalopram oxalate 20 MG tablet 20 mg PO BID bupropion HCl 300 MG tablet extended release 24 hr 300 mg PO DAILY naproxen sodium 220 MG tablet 220 mg PO Q12H PRN PRN (Reason: Pain) L.acidoph, paracasei,B. lactis 1 EACH capsule 1 ea PO DAILY ferrous sulfate 325 mg (65 mg iron) tablet 325 mg PO DAILY Label Comments: TAKE 1 TABLET BY MOUTH EVERY DAY oxybutynin chloride 10 mg tablet extended release 24hr 10 mg PO DAILY Label Comments: TAKE 1 TABLET ORALLY ONCE PER DAY FOR 30 DAYS hydrocodone-acetaminophen 5-325 mg tablet 1 tab PO Q6H PRN (Reason: pain) 3 Days Qty: 12 0RF cephalexin 250 mg capsule 250 mg PO QHS Label Comments: TAKE 1 CAPSULE BY MOUTH ONCE DAILY BEFORE BED pantoprazole 20 mg tablet,delayed release (DR/EC) 20 mg PO DAILY Label Comments: TAKE 1 TABLET BY MOUTH EVERY DAY Ocrevus 30 mg/mL Solution 30 mg IV .[id number] Referrals / Follow Up: Loreto Son MD [Primary Care Provider] - Disposition Disposition (needs filled in before D/C Order can be placed): Home, Self Care
--- NOTE | 2022-03-29 16:45 | OP.PCM_ITS ---
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 She had previous surgery. Nonsurgical treatment was completed, but due to on going symptoms she would like to proceed with surgical options. We discussed all of the options, and she elected to proceed with 1st toe interphalangeal joint arthrodesis, hardware removal 1st toe, as well as revision arthrodesis of the 2nd and 3rd toes as well as possible tenotomy and capsulotomy of the 2nd and 3rd metatarsal phalangeal joints. This was discussed with her in great detail.? We reviewed all the possible benefits, risks, goals and expectations.? She expressed understanding and agreement.? We also reviewed the typical postoperative and expected postoperative course.? She expressed understanding and agreement and wanted to proceed forward with surgical intervention.? All alternative options were discussed with her and all the possible benefits, risks of the alternative options were discussed with her as well in detail.? She expressed understanding and agreement and again want to proceed for surgical intervention.? The consent form was reviewed with her and she freely signed them. No guarantees were given or implied. No warranties were given. Operative Procedure: The patient was brought back into the operating room and was placed onto the operative table in the supine position.? She was carefully secured to the operating room table with safety belt around her waist.? The patient did receive 2 g of intravenous cefazolin for antibiotic prophylaxis, the patient received general anesthesia per the anesthesiologist.? A well-padded pneumatic tourniquet was applied around her left ankle. A 1st, 2nd and 3rd ray block was completed using 11mL of 0.5% Bupivacaine plain after the skin was cleansed with 70% Isopropyl alcohol. The left foot was scrubbed, prepped and draped in the usual aseptic fashion.? Further attention was directed to the left foot, there was lateral deviation of the 1st toe at the level of the interphalangeal joint. The 2nd and 3rd toes are medially deviated and contracted. The 1st toe was abutting into the 2nd toe and going into the 3rd toe.? The foot was elevated for 3 minutes and the left ankle pneumatic tourniquet was inflated to 250 mmHg.? Left 1st toe hardware removal: An incision was made using a 15 scalpel blade overlying the dorsal medial aspect of the hallux proximal phalanx medial to the extensor hallucis longus tendon. Dissection was completed down to the staple, there was some slight bone overgrowth which was removed sing an osteotome. The staple was then removed in toto without complication. The site was flushed out with copious amounts of normal saline solution. The subcutaneous tissue was reapproximated using 3-0 Vicryl and the skin was reapproximated using 4-0 Nylon. Left 1st toe interphalangeal joint arthrodesis: An incision was made using a 15 scalpel blade overlying the dorsal medial aspect of the hallux interphalangeal joint (IPJ) as well as the proximal phalanx of the 1st toe, medial to the extensor hallucis longus tendon.? Careful dissection was completed down to the IPJ and it was incised dorsally. The capsule was partially reflected and the j oint was identified. The cartilage was visualized of the IPJ 1st toe, there was noted to be degenerative changes with cartilage thin and arthritic, the cartilage was resected using a curette, and also a wedge of bone was removed (using a powered sagittal saw) to straighten the toe. 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 The toe was temporarily fixated using a kwire and and a FT headless screw was placed across the fusion site compressing the fusion site holding it rigid and in good position. At this time, the fusion site was stable, good bone to bone contact and good fixation present.? Intraoperative fluoroscopy confirmed this as well.?The toe was in excellent position. The site was flushed out with copious amounts of normal saline solution. The subcutaneous tissue was reapproximated using 3-0 Vicryl and the skin was reapproximated using 4-0 Nylon. Left 2nd toe arthrodesis: A skin incision was made longitudinally using a 15 bl pravin to the dorsal toe. Dissection was completed down to the extensor digitorum longus and it was split down the middle using a 15 blade longitudinally. The tendon was reflected. An osteotomy was completed to the mid portion of the toe and a wedge was removed to straighten the toe. The toe was fixated using 1 x 2.5mm FT headless screw. At this time the toe was straight in rectus position, holding it rigid and in good position. At this time, the site was stable, good bone to bone contact and good fixation present. The site was flushed out with copious amounts of normal saline solution. The skin was reapproximated using 4-0 Nylon.? Left 3rd metatarsal phalangeal joint (MTPJ) capsulotomy: It was noted the 3rd toe was medially deviated and contracted at the 3rd MTPJ. A small less than 1/2cm incision was made to the dorsal 3rd MTPJ. The 3rd MTPJ contracture was released using a 15 blade. The toe improved its position. The site was flushed out with copious amounts of normal saline solution. The skin was reapproximated using 4-0 Nylon.? Left 3rd toe arthrodesis: There was still deviation of the toe so this procedure had to be completed. A skin incision was made longitudinally using a 15 blade to the dorsal toe. Dissection was completed down to the extensor digitorum longus and it was split down the middle using a 15 blade longitudinally. The tendon was reflected. An osteotomy was completed to the mid portion of the toe and a wedge was removed to straighten the toe. The toe was fixated using 1 x 2.5mm FT headless screw. At this time the toe was straight in rectus position, holding it rigid and in good position. At this time, the site was stable, good bone to bone contact and good fixation present. The site was flushed out with copious amounts of normal saline solution. The skin was reapproximated using 4-0 Nylon.? Of note the resected bone from the 1st, 2nd and 3rd toes was sent to pathology as specimen. Also all vital structures including all vital neurovascular struc tures were properly identified and protected as needed. The pneumatic tourniquet was deflated (total tourniquet time was 104 minutes, 87 minutes initially, was deflated 41 minutes, then 17 minutes up again - we had to wait for screw for hallux IPJ to get sterilized). There was immediate return of warmth and perfusion to the foot and to all five toes of the foot. CFT was < 2 seconds to all toes with normal temperature present. A dressing was applied which consisted of Betadine soaked Adaptic, 4x4 gauze, Kerlix and an Edil bandage. The patient tolerated the above procedure well and anesthesia well with no complications. The patient was transported from the operative room to the recovery room with vital signs stable and in good condition. Post operative orders were placed, and post operative instructions were reviewed with the patient and her who was with her today (verbal and written). No weightbearing left forefoot, keep the dressing clean, dry and intact. Keep foot elevated for at least 50 minutes of every hour. Post operative prescriptions for [place] for pain control. Patient to follow up in 1 week, sooner if needed. Also of note post operative xrays were obtained of the left foot in the recovery room, which were reviewed. These confirmed toes were in good position present, with intact hardware, good bone to bone contact. Grafts/Implants Used: Arthrex FT cannulated screws Complications None
--- NOTE | 2022-03-29 17:30 | RAD_ITS ---
EXAM: XR LEFT FOOT COMPLETE, 3 OR MORE VIEWS CLINICAL INDICATION: post op TECHNIQUE: Frontal, lateral and oblique views of the left foot. This report was created using Online[employer] report generation technology. COMPARISON: None. FINDINGS: BONES/JOINTS: There are arthrodesis screws visualized. Fusion of the second first and third digit. No acute fracture. No subluxation. Normal alignment. Preservation of the joint space. No sclerotic or destructive changes observed. SOFT TISSUES: Unremarkable. No soft tissue swelling or gas. No radiopaque foreign body. RAD/Foot min 3 Views IMPRESSION: Postsurgical changes noted. Electronically Signed: Gerardo Cagle MD at 17:17 EST ,
[2022-03-29] MEDS: HYDROcodone Bitartrate/Apap 5/325 Tablet PO (18:30)
== END 2022-03-29 18:56 | disposition home or self-care (01) ==
LOC: SDC 06:05 → AC 06:06
PROVIDERS: Anesthesiology; PCP Family Medicine; Referring Provider Podiatrist; Visit Provider Podiatrist
PROC: (CPT 28292; principal; 2022-03-29 07:15)
DX: M20.32 Hallux varus (acquired), left foot (principal); G35 Multiple sclerosis; M20.42 Other hammer toe(s) (acquired), left foot; M19.072 Primary osteoarthritis, left ankle and foot; Z79.890 Hormone replacement therapy; Z79.899 Other long term (current) drug therapy
CPT/HCPCS: 28755; 28285 ×2; 28270; 20680; 01480; 73630; 73660; 76000; 84443; 88304; 88305; 88311; C1776; J7120; J2405

== ENCOUNTER → 2022-08-30 | Outpatient (CLI) | payer MEDICARE, SELFPAY ==
--- NOTE | 2022-08-30 16:02 | CT_ITS ---
CT LEFT LOWER EXTREMITY CLINICAL INDICATION: SYMPTOMATIC HARDWARE TECHNIQUE: Axial CT images of the LEFT foot was performed without IV contrast material. Coronal and sagittal reformats were provided. RADIATION DOSAGE (If Supplied By Facility): CTDIvol = ( 15.35 ) mGy, DLP = ( 403.65 ) mGycm COMPARISON: January 21, 2019 MRI March 29, 2022 foot radiograph FINDINGS: Bones: Internal fixation of the first proximal and distal phalanx, second phalanges, and third phalanges without perihilar lucency or evidence of hardware failure. No periostitis. No osseous erosion. No fracture. No aggressive osseous lesion. Soft Tissues: Subcutaneous soft tissue edema along the first digit, more confluent medial to the fixating first proximal and distal phalanx. No subcutaneous emphysema. No radiodense soft tissue foreign body. CT/Extremity Lower without Contra IMPRESSION: Soft tissue edema along the great toe concerning for cellulitis in the appropriate setting, more confluent just medial to the first proximal distal phalanx. Contrast-enhanced CT or MRI may be beneficial to better exclude drainable fluid collection or abscess. Internal fixation of the first second and third phalanges without perihardware lucency or evidence of hardware failure. No specific osseous findings bronchiolitis. Electronically Signed: Lyndon Loyola MD at 0:53 EDT ,
== END | disposition home or self-care (01) ==
PROVIDERS: PCP Family Medicine; Referring Provider Podiatrist; Visit Provider Podiatrist
DX: T84.9XXA Unspecified complication of internal orthopedic prosthetic device, implant and graft, initial encounter (principal); J21.9 Acute bronchiolitis, unspecified; X58.XXXA Exposure to other specified factors, initial encounter
CPT/HCPCS: 73700

== ENCOUNTER → 2023-08-28 | Outpatient (CLI) | payer MEDICARE, SELFPAY ==
--- NOTE | 2023-08-28 13:57 | VDLE_ITS ---
Reason For Study: Bitlateral leg swelling RIGHT LEFT GSV is normal. GSV is normal. CFV is compressible, spontaneous, phasic, CFV is compressible, spontaneous, phasic, competent and demonstrates normal competent, and demonstrates normal augmentation. augmentation. FV is compressible, spontaneous, phasic, FV is compressible, spontaneous, phasic, competent and demonstrates normal competent and demonstrates normal augmentation. augmentation. POP V is compressible, spontaneous, phasic, POP V is compressible, spontaneous, phasic, competent and demonstrates normal competent and demonstrates normal augmentation. augmentation. T/P Trunk is compressible. T/P Trunk is compressible. PTV is compressible. PTV is compressible. RT PerV is compressible. LT PerV is compressible. Procedure This is a venous duplex using B-mode, color flow and spectral Doppler. Exam performed in department. A preliminary report was called and/or faxed to Dr. Hernandez. VL/Venous Duplex US - [facility] Extrem Interpretation Summary Deep veins of the bilateral lower extremities are patent and compressible segme ntally. There is no evidence of bilateral lower extremity deep vein thrombosis. The bilateral great saphenous veins appear patent and compressible segmentally. Ordering Physician: Catracho Hernandez Referring Physician: Ninoska Soria MD Performed By: Mildred Willis RVT and Student
== END | disposition home or self-care (01) ==
LOC: CVS 13:53
PROVIDERS: PCP Family Medicine; Referring Provider Podiatrist; Visit Provider Podiatrist
DX: I82.402 Acute embolism and thrombosis of unspecified deep veins of left lower extremity (principal); M79.675 Pain in left toe(s)
CPT/HCPCS: 93970

== ENCOUNTER 2023-10-31 19:35 | Emergency (ER) | payer MEDICARE, OTHER, SELFPAY ==
[2023-10-31 19:37] VITALS: BP 135/120; PULSE 62; RESP 16; TEMP 36.1; O2SAT 100
--- NOTE | 2023-10-31 20:25 | EX.ED.DYSGE1 ---
HPI History of Present Illness Chief Complaint: Confusion Informant: patient Narrative Narrative: 63-year-old female history of multiple sclerosis presenting to the emergency room for concerns of UTI and COVID-19. Patient and her flew to [place] 1 week ago. She noticed that she was having symptoms of a UTI. She self caths due to her MS noted changes in the urine. She drink plenty of fluids and this improved. About 4 days ago she began to have sore throat slight cough fatigue vomiting and diarrhea. A home COVID test was obtained when they returned home and was positive. She did a virtual visit with her doctor where she was prescribed Paxlovid. She was also given a prescription for Macrobid and has had 1 dose. There is not been any reported fevers. No rashes. The diarrhea has subsided. Vomiting stopped yesterday. notes that he would like her aggressively treated for this. He is concerned about dehydration. He notes that she has been more confused today noting that she has been mixing up text messages and her knowing which medication she has taken. [facility] Medical History (Updated 10/31/23 @ 20:42 by Damari Scanlon) Hypotension Self-catheterizes urinary bladder Wears dentures Wears glasses Post-menopausal History of steroid therapy Thyroid disease Seizures Syncope Difficulty swallowing Gastric reflux Non-smoker Hypothyroid Depression Anxiety History of toe fracture Neuropathy Osteopenia IBS (irritable bowel syndrome) Hypoglycemia Multiple sclerosis Home Medications ?Medication ?Instructions ?Recorded ?Last Taken ?Type alprazolam 0.5 mg tablet 0.25 mg PO BID 12/06/13 03/28/17 History cholecalciferol (vitamin D3) 25 1,000 unit PO DAILY 12/06/13 Unknown History mcg (1,000 unit) capsule cyanocobalamin (vitamin B-12) 1,000 mcg PO DAILY 12/06/13 Unknown History 1,000 mcg tablet docusate sodium 100 mg capsule 100 mg PO DAILY PRN Constipation 12/06/13 Unknown History escitalopram oxalate 20 mg tablet 20 mg PO BID 12/06/13 06/07/16 05:15 History fluoxetine 20 mg capsule 20 mg PO DAILY 12/06/13 06/07/16 05:15 History gabapentin 300 mg capsule 300 mg PO BID 12/06/13 02/27/18 History 300 MG gabapentin 300 mg capsule 300 mg PO QHS 12/06/13 Unknown History levothyroxine 50 mcg tablet 50 mcg PO QHS 12/06/13 03/29/22 History meclizine 25 mg tablet 25 mg PO Q6H PRN PRN Dizziness 12/06/13 Unknown History pyridoxine (vitamin B6) 100 mg 100 mg PO DAILY 12/06/13 Unknown History tablet trazodone 50 mg tablet 50 mg PO QHS 12/06/13 Unknown History bupropion HCl 300 mg 24 hr tablet, 300 mg PO DAILY 05/31/16 Unknown History extended release L.acidoph, paracasei,B. lactis 10 1 ea PO DAILY 02/24/18 Unknown History billion cell capsule naproxen sodium 220 mg tablet 220 mg PO Q12H PRN PRN Pain 02/24/18 Unknown History ferrous sulfate 325 mg (65 mg 325 mg PO DAILY 10/29/20 Unknown History iron) tablet hydrocodone-acetaminophen 5-325mg 1 tab PO Q6H PRN pain 3 days #12 10/29/20 Unknown Rx 5mg-325mg tabs oxybutynin chloride 10 mg 10 mg PO DAILY 10/29/20 03/29/22 History tablet,extended release 24 hr cephalexin 250 mg capsule 250 mg PO QHS 02/08/22 Unknown History ocrelizumab 30 mg/mL intravenous 30 mg IV .[id number] MS 02/08/22 Unknown History solution (Ocrevus) pantoprazole 20 mg tablet,delayed 20 mg PO DAILY 02/08/22 03/29/22 History release hydrocodone-acetaminophen 5-325mg 1 tab PO Q6H PRN pain 4 days #24 03/29/22 Unknown Rx 5mg-325mg tabs hydrocodone-acetaminophen 5-325mg 1 tab PO Q8H PRN pain 7 days #21 04/04/22 Unknown Rx 5mg-325mg tabs Allergy/AdvReac Type Severity Reaction Status Date / Time adhesive tape Allergy Itching Verified 10/31/23 19:37 fish oil Allergy Unknown Verified 10/31/23 19:37 house dust mite Allergy NEEDS Verified 10/31/23 19:37 FOLLOW-UP Penicillins Allergy NEEDS Verified 10/31/23 19:37 FOLLOW-UP ragweed pollen Allergy Unknown Verified 10/31/23 19:37 Sulfa (Sulfonamide Allergy Unknown Verified 10/31/23 19:37 Antibiotics) Family History Other Cancer Heart disease Hypertension Surgical History History of esophagogastroduodenoscopy (EGD) Hx of surgical procedure Hx of tooth extraction Hx of surgical procedure Hx of surgical procedure Social History Smoking Status: Never smoker alcohol intake: never substance use type: does not use what type of physical activity do you participate in: walking frequency: 3-4 times per week ROS ROS ED ROS Narrative Lethargy Constitutional Constitutional ED: Reports chills; Denies fever(s) or weight loss Eyes Eyes: Denies change in vision or diplopia ENT ENT ED: Reports sore throat; Denies ear pain or rhinorrhea Cardiovascular Cardiovascular: Denies chest pain, orthopnea, palpitations or racing heartbeat Respiratory/Chest Respiratory/Chest: Reports cough; Denies dyspnea or orthopnea Gastrointestinal Gastrointestinal: Reports diarrhea, nausea and vomiting; Denies abdominal pain Genitourinary Genitourinary ED: Denies dysuria, hematuria or urinary frequency Musculoskeletal Musculoskeletal: Reports neck pain; Denies arthralgias or myalgias Integumentary Denies abscess or rash Neurologic Neurologic: Reports other Details: confusion ; Denies headache(s) or weakness Psychiatric Psychiatric: Denies anxiety, depression, suicidal ideation or suicidal thoughts Endocrine Endocrinology: Denies polydipsia, polyphagia or polyuria Allergic/Immunologic Allergic/Immunologic ED: Denies mouth swelling, tongue swelling or urticaria EXAM Physical Exam Const Vital Signs: 10/31/23 19:37 10/31/23 20:36 10/31/23 21:30 Temperature 97 F L 98 F 97.7 F L Temperature Source Temporal Temporal Temporal Pulse Rate 62 48 L 49 L Respiratory Rate 16 18 16 Blood Pressure 135/120 H 120/72 137/58 H Blood Pressure Mean 125 88 74 Pulse Ox 100 100 100 Oxygen Delivery Method Room Air Room Air 10/31/23 21:43 10/31/23 22:00 Temperature 97.7 F L Temperature Source Temporal Pulse Rate 44 L 44 L Respiratory Rate 14 13 Blood Pressure 124/62 H Blood Pressure Mean 79 Pulse Ox 100 Oxygen Delivery Method Room Air Positive well nourished and well developed General Appearance ED: well developed HEENT Reports normocephalic, head/scalp atraumatic and moist mucous membranes Eyes PERRL and EOMs intact bilaterally Neck no lymphadenopathy, supple and no JVD Resp normal respiratory effort and clear to auscultation bilaterally Cardio regular rate, regular rhythm and no murmurs GI normal to inspection, nondistended, normoactive bowel sounds and non-tender Palpation: soft Back/Spine no CVA tenderness and normal ROM Extremity normal to inspection General Extremety ED: Negative for edema General Extremity: Negative for edema Neuro oriented x3 and CN's II-XII intact bilaterally Sensorium / Orientation: alert Motor Exam: strength 5/5 throughout Psych mental status grossly normal Mood & Affect: Negative for depressed or tearful Skin no rashes or lesions noted and no wounds MDM MDM MDM Narrative Medical decision making narrative: Differential diagnosis includes COVID-19 viral syndrome dehydration electrolyte abnormality renal failure anemia heart block pneumonia pleural effusion Negative interpretation of the chest x-ray is no acute process. Patient has a chronic leukopenia and today is 2.7 hemoglobin 13.6 and platelet count of 204. Normal BUN and creatinine anion gap is 2 CO2 is 33 normal liver enzymes urinalysis 1+ bacteria 0-5 squamous cells 0-5 white cells 0-5 red cells negative leukocyte Estrace. Patient's minute sinus bradycardia with rate sometimes reaching 58. She has not had any hypotension. She is tolerating p.o. fluids. Patient received a liter of IV fluids as well as Zofran. Spoke with the patient and her . She has Zofran at home she is on Paxlovid she is also on Macrobid. I do not see a significant benefit at this time and hospitalizing her. We talked about staying the night and she is comfortable going home and getting rest. Her will will handle his medications. He will encourage her to drink fluids. They will return if she is worsening or they have concerns History & Record Review Discussion w/independent historian: Patient and Significant other Lab Data Attestation: I reviewed the patient's lab results. Labs: Laboratory Results - last 24 hr 10/31/23 10/31/23 20:28 21:00 WBC 2.7 L RBC 4.35 Hgb 13.6 Hct 40.5 MCV 93.1 MCH 31.3 MCHC 33.6 RDW Std Deviation 40.1 RDW Coeff of Isaac 11.7 Plt Count 204 MPV 10.6 Immature Gran % (Auto) 0.400 Neut % (Auto) 40.8 L Lymph % (Auto) 39.8 Douglas % (Auto) 18.2 H Eos % (Auto) 0.4 Baso % (Auto) 0.4 Absolute Neuts (auto) 1.1 L Absolute Lymphs (auto) 1.07 Nucleated RBC % 0 Sodium 137 Potassium 4.4 Chloride 102 Carbon Dioxide 33.0 H Anion Gap 2 L BUN 11 Creatinine 0.87 Estim Creat Clear Calc 42.74 Est GFR (MDRD) Af Amer 84 Est GFR (MDRD) Non-Af 69 BUN/Creatinine Ratio 12.6 Glucose 81 Calcium 8.8 Total Bilirubin 0.30 Direct Bilirubin 0.13 AST 30 ALT 27 Alkaline Phosphatase 73 Total Protein 6.7 Albumin 3.6 Globulin 3.1 Urine Color Yellow Urine Clarity Sl. Cloudy Urine pH 6.0 Ur Specific [place] 1.020 Urine Protein Negative Urine Glucose (UA) Normal Urine Ketones 15 H Urine Occult Blood 10 H Urine Nitrite Negative Urine Bilirubin Negative Urine Urobilinogen Normal Ur Leukocyte Esterase 25 H Urine RBC 0-5 SEEN Urine WBC 0-5 SEEN Ur Squamous Epith Cells 0-5 SEEN Urine Bacteria 1+ Urine Mucus 0 SEEN Radiography Diagnostic Testing: Clinical Impression(s) from Imaging Studies Chest X-Ray 10/31/23 20:49 IMPRESSION: COPD Electronically Signed: Price Zaidi MD at 21:41 EDT Reading Location ID and State: [address] [place] [address] Tel , Service support , EKG Initial EKG: Attestation: I personally reviewed and interpreted this EKG as follows: Comments: Sinus bradycardia ventricular rate of 48 bpm Discharge Plan Triage Chief Complaint: Confusion ED Provider: Chun Pierson Dx/Rx/DC Orders Prescriptions: No Action trazodone 50 MG tablet 50 mg PO QHS cyanocobalamin (vitamin B-12) 1,000 MCG tablet 1,000 mcg PO DAILY alprazolam 0.5 MG tablet 0.25 mg PO BID meclizine 25 MG tablet 25 mg PO Q6H PRN PRN (Reason: Dizziness) levothyroxine 50 MCG tablet 50 mcg PO QHS docusate sodium 100 MG capsule 100 mg PO DAILY PRN (Reason: Constipation) gabapentin 300 MG capsule 300 mg PO QHS Patient Comments: TAKES AT NOON gabapentin 300 MG capsule 300 mg PO BID pyridoxine (vitamin B6) 100 MG tablet 100 mg PO DAILY fluoxetine 20 MG capsule 20 mg PO DAILY cholecalciferol (vitamin D3) 1,000 UNIT capsule 1,000 unit PO DAILY escitalopram oxalate 20 MG tablet 20 mg PO BID bupropion HCl 300 MG tablet extended release 24 hr 300 mg PO DAILY naproxen sodium 220 MG tablet 220 mg PO Q12H PRN PRN (Reason: Pain) L.acidoph, paracasei,B. lactis 1 EACH capsule 1 ea PO DAILY ferrous sulfate 325 mg (65 mg iron) tablet 325 mg PO DAILY Patient Comments: TAKE 1 TABLET BY MOUTH EVERY DAY oxybutynin chloride 10 mg tablet extended release 24hr 10 mg PO DAILY Patient Comments: TAKE 1 TABLET ORALLY ONCE PER DAY FOR 30 DAYS hydrocodone-acetaminophen 5-325 mg tablet 1 tab PO Q6H PRN (Reason: pain) 3 Days Qty: 12 0RF cephalexin 250 mg capsule 250 mg PO QHS Patient Comments: TAKE 1 CAPSULE BY MOUTH ONCE DAILY BEFORE BED pantoprazole 20 mg tablet,delayed release (DR/EC) 20 mg PO DAILY Patient Comments: TAKE 1 TABLET BY MOUTH EVERY DAY Ocrevus 30 mg/mL Solution 30 mg IV .[id number] hydrocodone-acetaminophen 5-325 mg tablet 1 tab PO Q6H PRN (Reason: pain) 4 Days Qty: 24 0RF hydrocodone-acetaminophen 5-325 mg tablet 1 tab PO Q8H PRN (Reason: pain) 7 Days Qty: 21 0RF Primary Care Provider: Fox Xiao Referrals: Fox Xiao MD [Primary Care Provider] - Print Language: Botswanan
[2023-10-31 20:36] VITALS: BP 120/72; PULSE 48; RESP 18; TEMP 36.6; O2SAT 100; BMI 16.4
[2023-10-31] MEDS: Ondansetron 4 MG/2 ML Vial IV (20:37)
[2023-10-31] MEDS: 0.9% Normal Saline (1000mL) 1,000 ML 1000 ML IV (20:37)
[2023-10-31 20:47] LABS: Absolute Lymphocyte Count 1.07 X10^3/uL (0.83-4.51); Absolute Neutrophil Count 1.1 X10^3/uL (2.0-7.7); Basophil# 0.01 X10^3/uL; Basophil% 0.4 % (0-1); Eosinophil# 0.01 X10^3/uL; Eosinophils% 0.4 % (0-5); Hematocrit 40.5 % (37-47); Hemoglobin 13.6 g/dL (12.0-15.0); Lymphocyte # 1.07 X10^3/ul (0.83-4.51); Lymphocyte % 39.8 % (19-41); Mean Corp Hgb Conc 33.6 g/dL (32-36); Mean Corpuscular Hgb 31.3 pg (27.0-32.0); Mean Corpuscular Volume 93.1 fL (81-99); Mean Platelet Vol. 10.6 fl (6.2-12.0); Monocyte# 0.49 X10^3/uL; Monocyte% 18.2 % (0-10); NRBC Flagged by Analyzer 0 % (0-5); Neutrophil % 40.8 % (47-70); Platelet Count 204 K/mm3 (150-450); RBC Distribution Width CV 11.7 % (11.6-14.6); RBC Distribution Width SD 40.1 fl (35.1-43.9); Red Blood Count 4.35 M/mm3 (4.2-5.4); White Blood Count 2.7 K/mm3 (4.4-11.0)
--- NOTE | 2023-10-31 20:49 | RAD_ITS ---
STUDY: X-RAY CHEST REASON FOR EXAM: Female, 63 years old. weakness covid 19 TECHNIQUE: Single frontal view of the chest. COMPARISON: 08/06/2019 FINDINGS: Lungs are hyperaerated. The lungs are clear and expanded. There is no demonstrated pleural abnormality. Normal size heart. Normal mediastinum and silvia. Normal visualized pulmonary arteries. Normal visualized aortic arch and descending thoracic aorta. Normal visualized thoracic spine. Normal visualized ribs, clavicles, and shoulders. There is no demonstrated abnormality of the visualized soft tissue structures of the upper abdomen. RAD/Chest 1 View (Portable) IMPRESSION: COPD Electronically Signed: Price Zaidi MD at 21:41 EDT ,
[2023-10-31 21:05] LABS: AST(SGOT) 30 U/L (15-37); Alanine Aminotransfer ALT/SGPT 27 U/L (13-56); Albumin, Serum 3.6 g/dL (3.2-5.0); Alkaline Phosphatase 73 U/L (45-117); Anion Gap 2 (5-15); BUN 11 mg/dL (7-18); BUN/Creat Ratio 12.6 RATIO (10-20); Bilirubin, Direct 0.13 mg/dL (0.00-0.30); Calcium,Total 8.8 mg/dL (8.5-10.1); Chloride 102 mmol/L (98-107); Creatinine, Serum 0.87 mg/dL (0.55-1.02); EST Glomerular Filtration Rate 69 mL/min (>60); Est Glom Filt Rate - Afr Amer 84 mL/min (>60); Estimated Creatinine Clearance 42.74 ml/min; Globulin 3.1 g/dL (2.2-4.2); Glucose 81 mg/dL (74-106); Potassium 4.4 mmol/L (3.5-5.1); Protein, Total 6.7 g/dL (6.4-8.2); Sodium Level 137 mmol/L (136-145)
[2023-10-31 21:26] LABS: Mucous, Urine 0 SEEN /hpf (<or=2+)
[2023-10-31 21:28] LABS: Color, Urine Yellow (Yellow); Glucose, Dipstick Normal (Normal); Ketone-Dipstick 15 mg/dl (Negative); Leukocyte Esterase-Dipstick 25 /ul (Negative); Nitrite-Dipstick Negative (Negative); Occult Blood-Urine 10 /ul (Negative); Protein-Dipstick Negative (Negative); Urine Bilirubin Dipstick Negative (Negative); Urine Clarity Sl. Cloudy (Clear); Urine Urobilinogen Normal (Normal)
[2023-10-31 21:30] VITALS: BP 137/58; PULSE 49; RESP 16; TEMP 36.5; O2SAT 100
[2023-10-31 21:35] LABS: Bacteria 1+ /hpf (None Seen); Red Blood Cells-Urine 0-5 SEEN /hpf (0-5); Squamous Epithelial Cells - UA 0-5 SEEN /hpf (5-10); White Blood Cells 0-5 SEEN /hpf (0-5)
[2023-10-31 21:43] VITALS: PULSE 44; RESP 14; O2SAT 100
[2023-10-31 22:00] VITALS: BP 124/62; PULSE 44; RESP 13; TEMP 36.5
--- NOTE | 2023-10-31 22:11 | EKG12_ITS ---
Test Reason : Blood Pressure : / mmHG Vent. Rate : 048 BPM Atrial Rate : 048 BPM P-R Int : 156 ms QRS Dur : 068 ms QT Int : 482 ms P-R-T Axes : 079 -80 066 degrees QTc Int : 430 ms Sinus bradycardia Left axis deviation Low voltage QRS Cannot rule out Anteroseptal infarct , age undetermined Abnormal ECG Confirmed by EUSEBIO QUIROGA, ALEC ([id number]), editorial writer LOWELL ANDINO ([id number]) on 11/03/2023 9:34:18 AM Referred By: SPENCER Confirmed By:ISH KAPLAN MD
[2023-10-31 22:45] VITALS: BP 151/78; PULSE 42; RESP 15; TEMP 36.5; O2SAT 96
== END 2023-10-31 23:00 | disposition home or self-care (01) ==
PROVIDERS: Emergency Provider Emergency Medicine; PCP Family Medicine; Visit Provider Emergency Medicine
DX: R41.0 Disorientation, unspecified (principal); G35 Multiple sclerosis
CPT/HCPCS: 71045; 80048; 80076; 81001; 85025; 87631; 93005; 96361; 96374; 99282; A4216; J2405

== ENCOUNTER → 2024-02-11 | Outpatient (CLI) | payer MEDICARE, OTHER, SELFPAY ==
--- NOTE | 2024-02-11 14:56 | US_ITS ---
STUDY: RENAL ULTRASOUND - COMPLETE REASON FOR EXAM: Female, 63 years old. URINARY RETENTION TECHNIQUE: Ultrasound evaluation of the kidneys was performed with real-time and static olvera-scale imaging. COMPARISON: 01/25/2022 FINDINGS: RIGHT KIDNEY: Normal location of the right kidney, which is normal in size. The right kidney measures 7.8 cm. There is a normal cortex of the right kidney. The renal cortex measures 1.0 cm. There is no right renal mass or cyst. There are no right renal calculi. There is no right hydronephrosis. DISTAL RIGHT URETER: There is non-visualization of the distal right ureter. There is no demonstrated right ureterovesical junction calculus. There is a visualized right ureteral jet. LEFT KIDNEY: Normal location of the left kidney, which is normal in size. The left kidney measures 9.3 cm. There is a normal cortex of the left kidney. The renal cortex measures 1.2 cm. There is no left renal mass or cyst. There are no left renal calculi. There is no left hydronephrosis. DISTAL LEFT URETER: There is non-visualization of the distal left ureter. There is no demonstrated left ureterovesical junction calculus. There is a visualized left ureteral jet. BLADDER: The distended urinary bladder has a volume of 218 ml. The empty urinary bladder has a volume of 147 ml. There is a normal wall thickness of the distended urinary bladder. There is no demonstrated mass within the urinary bladder. There are no demonstrated bladder calculi. US/Kidney and Bladder IMPRESSION: Normal ultrasound of the kidneys and urinary bladder. Significant postvoid residual. Electronically Signed: Bala Cruz MD at 9:04 EST ,
== END | disposition home or self-care (01) ==
PROVIDERS: PCP Family Medicine; Referring Provider Urology; Visit Provider Urology
DX: N31.9 Neuromuscular dysfunction of bladder, unspecified (principal); R33.9 Retention of urine, unspecified
CPT/HCPCS: 76770

== ENCOUNTER 2024-04-22 13:01 | Outpatient (RCR) | payer MEDICARE, OTHER, SELFPAY ==
--- NOTE | 2024-04-22 14:43 | HP.PTEVAL_ITS ---
Patient's Visit Information Visit Information Visit Information: GURMEET MOSHER is a 64 year old F referred to Physical Therapy by NEDA RICE with a diagnosis of MS/MULTIPLE FALLS. Date of Evaluation: 04/22/24 Physical Therapist: Esther Aragon PT, Cert MDT Visit Plan Frequency: 2x /Week Duration: 6-8 Plan: THERAPIST TO GET IN POOL WITH PATIENT AT LEAST FIRST VISIT AND THEN NEEDED. POOL CHAIR FIRST VISIT FOR SAFETY WITH +1 STAND PIVOT TRANSFER. AQUATIC THERAPY. CORE AND NETTE LE STRENGTHENING. GAIT AND BALANCE TRAINING. PAIN RELIEF. POSTURE CORRECTION/STRENGTHENING, INSTRUCTION IN APPROPRIATE BODY MECHANICS AND ACTIVITY MODIFICATIONS. CORE STRENGTHENING. NETTE LE STRETCHING. HEP INSTRUCTION. Subjective Subjective: Work/Leisure: DISABLED. 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 Present symptoms: LOW BACK PAIN AND SOME LEFT RIB PAIN. Present since: ABOUT 3 WKS AGO Pain Scale: WORST 5/10, LEAST 1/10 Currently: 1/10 Is it getting better, worse or staying the same: GETTING BETTER Commenced as a result of: FELL IN THE BATHROOM AT HOME. STOOD UP FROM W/C AND WAS GOING TO WALK INTO THE BATHROOM AND THINKS SHE MIGHT HAVE BEEN RUSHING TO GET TO THE TOL[place]ET AND LOST HER BALANCE. WENT TO [facility] 3 DAYS LATER Symptoms at onset: LOW BACK AND L RIB PAIN Worse: STANDING ALL THE WAY UP, TWISTING, BENDING Better: IBUPROFEN, CHIROPRACTIC ADJUSTMENTS AND STRETCHES Disturbed sleep: NO Previous history/Previous treatment: PATIENT REPORTS ROUTINE CHIROPRACTIC ADJUSTMENTS ABOUT EVERY 3 WKS FOR ABOUT 2 YEARS FOR MS BUT DENIES H/O SIGNIFICANT LBP PRIOR TO FALL. NO H/O LUMBAR SX, [facility] OR PT. 2 EPISODES OF COVID IN OCTOBER 2023 AND THEN RSV MAR [id number] THEREFORE VERY DECONDITIONED PRIOR TO FALL. H/O FREQUENT FALLS EVEN BEFORE GETTING COVID. REPORTS EVEN FELL 4 TIMES YESTERDAY BUT I KNOW HOW TO FALL. STATES THE FALL 3 WKS AGO CAUGHT HER OFF GUARD. Treatment this episode: 3 CHIROPRACTIC VISITS. PATIENT WAS IN POOL AND DID WELL LAST SUMMER PRIOR TO GETTING SICK AND FALL. SHE IS MUCH WEAKER NOW. Coughing/sneezing/straining: NEGATIVE FOR INCREASING PAIN. Gait: GETTING AROUND IN W/C, SCOOTING ON FLOOR AND USING ROLLATOR A LITTLE BIT A FEW FEET UP TO MAYBE 10 OR 15 FEET AT A TIME. PRIOR TO COVID LAST SUMMER PATIENT REPORTS WALKING INDEP'LY WITH 2 CANES AND BIONESS ON LLE FOR FOOT DROP A T HOME AND IN PUBLIC. Bowel or Bladder Dysfunction: Self-catheterizes urinary bladder Accidents: NO Unexplained weight loss: NO Imaging: NONE SINCE THE FALL PMH/Recent major surgery: Hypotension Self-catheterizes urinary bladder History of steroid therapy Thyroid disease Seizures Syncope Difficulty swallowing Gastric reflux Non-smoker Hypothyroid Depression Anxiety History of toe fracture Neuropathy Osteoporosis IBS (irritable bowel syndrome) Hypoglycemia Multiple sclerosis History of esophagogastroduodenoscopy (EGD) Objective Objective: THIS PATIENT COMES BACK TO PT IN HER W/C PUSHED BY HER . SHE QUICKLY GETS INDEP'LY TRANSFERS TO THE FLOOR AND SCOOTS ACROSS THE TREATMENT ROOM FLOOR TO SHOW ME HOW SHE GETS AROUND THE SAFEST AT HOME. MIN ASSIST NEEDED TO TRANSFER FROM FLOOR BACK INTO W/C BUT SHE ATTEMPTED WITH RATHER HIGHLY PLACED TREATMENT TABLE AND STATES SHE DOES IT INDEP'LY AT HOME. SHE REPORTS DEMO'S STRONG UPPER BODY STRENGTH AND IS NETTE UE DEPENDENT TO TRANSFER FROM SIT TO STAND AND REVERSE. POSTURE: EXCESIVE TRUNK FLEXION IN SITTING AND STANDING. ABLE TO PARTIALLY CORRECT BUT CAUSES INCREASED PAIN AND CANNOT MAINTAIN. POSTURAL STRENGTH: POOR. CORE STRENGTH: POOR. ROM: NETTE LE HIP FLEX, HS AND CALF TIGHTNESS L > R. STRENGTH: R LE: HIP 3+/5, KNEE 3+/5, ANKLE 3+/5. L LE: HIP 3-/5, KNEE EXT 3-/5, KNEE FLEX 2/5, ANKLE DORSI 2+/5. STANDING BALANCE: FAIR MINUS. DYNAMIC BALANCE: POOR. Sensory deficit: ALTERED SENSATION NETTE LE'S. Dural Signs: POSITIVE NETTE LE'S. Balance/Special Test Scores Lower Extremity Functional Score: 23 Goals Goal 1:: PATIENT WILL REPORT AT LEAST 50% LESS BACK AND L RIB PAIN WITH UPRIGHT SITTING, STANDING AND WALKING POSTURE. Goal Time Frame: 6-8 Weeks Goal 2:: PATIENT WILL BE ABLE TO INDEP'L AND SAFELY TRANSFER SIT TO STAND AND REVERSE TO HER ROLLATOR AND INITIATE GAIT WITHOUT LOB. Goal Time Frame: 2-4 Weeks Goal 3:: PATIENT WILL COMPLETE 6 STANDS IN 30 SECS WITH ONE UE ASSIST TO ROLLATOR TO DEMONSTRATE IMPROVED FUNCTIONAL LE STRENGTH Goal Time Frame: 4-6 Weeks Goal 4:: PATIENT WILL COMPLETE TUG SAFELY IN < 20 SECS WITH ROLLATOR WITH CONTACT GUARD TO DEMONSTRATE IMPROVED GAIT STABILITY Goal Time Frame: 4-6 Weeks Goal 5:: DECREASE FALL EPISODES TO ONE OR LESS PER WEEK. Goal Time Frame: 8-12 Weeks Goal 6:: INDEP HEP Goal Time Frame: 12-16 Weeks Rehabilitation Potential Physical Therapy Diagnosis: TRUNK, NETTE LE WEAKNESS L LE > R LE AND POSTURAL WEAKNESS. IMPAIRED GAIT. Rehabilitation Potential: Good Anticipated Interventions Patient/Client Instruction: Educate patient on: Condition, Plan of Care and Risk Factors For the Purpose of:: To improve self management Therapeutic Exercise to Include: Strength training, Balance training, Body mechanics, Postural training, Flexibilty training, Gait and locomotor training, Neuromotor development, In an aquatic setting and Dynamic Lumbar Stabilization For the Purpose of:: To decrease pain, To increase ROM, To improve muscle pe rformance and motor function, To improve ability to perform ADL's, To increase tolerance to activity/condition/position, To improve ability of physical actions for home/community/work/leisure and To improve gait and locomotor functions Text: Thank you for the opportunity to evaluate your patient. For Medicare and Medicare HMO plans, please review the plan of care and approve it. It will need to be FAXED BACK to us at [phone] for Medicare purposes. For Medicare only, by signing this I certify the plan of care. Please let me know if there are questions or concerns regarding this plan of care. Physician Signature: Date:
--- NOTE | 2024-05-05 15:53 | HP.PT.NRP ---
Patient Information Patient Information: GURMEET MOSHER was seen in my office for initial evaluation on 04/22/24. The following Plan of Care was established for this patient: POC Established Initial Frequency: 2x /Week Initial Duration: 6-8 Anticipated Interventions Patient/Client Instruction: Educate patient on: Condition, Plan of Care and Risk Factors For the Purpose of:: To improve self management Therapeutic Exercise to Include: Strength training, Balance training, Body mechanics, Postural training, Flexibilty training, Gait and locomotor training, Neuromotor development, In an aquatic setting and Dynamic Lumbar Stabilization For the Purpose of:: To decrease pain, To increase ROM, To improve muscle performance and motor function, To improve ability to perform ADL's, To increase tolerance to activity/condition/position, To improve ability of physical actions for home/community/work/leisure and To improve gait and locomotor functions Last Seen Last Seen: This patient was last seen in our office 04/22/24. Pertinent comments regarding their Physical therapy will appear below: It has been my pleasure to see this patient for a total of 1 visit for initial evaluation. This patient has subsequently not returned to Physical Therapy for more visits. It is this PT's understanding that she developed a bed sore and then fell and sustained a back fracture. At this point I will be discontinuing this patient from physical therapy. I would be happy to see this patient again in the future if found appropriate by the physician. Thank you! Esther Aragon, PT, Cert MDT Balance/Gait/Functional tests Balance/Special Test Scores Lower Extremity Functional Score: 23
== END 2024-04-22 19:00 | disposition home or self-care (01) ==
LOC: PT 13:01
PROVIDERS: PCP Family Medicine
DX: G35 Multiple sclerosis (principal); R29.6 Repeated falls
CPT/HCPCS: 97162; 97530

== ENCOUNTER → 2024-09-30 | Outpatient (CLI) | payer MEDICARE, OTHER, SELFPAY ==
--- NOTE | 2024-09-30 13:20 | RAD_ITS ---
CLINICAL HISTORY: Air-contrast esophagram barium swallow. Dysphagia COMPARISON: None TECHNIQUE: The patient ingested barium. Multiple images were obtained. Radiation dose: 73 seconds of fluoroscopy. 3.7 mGy. FINDINGS: The patient ingested barium. No evidence of esophageal obstruction. No evidence of gastroesophageal reflux. No mass lesion is seen. The patient was unable to swallow the 12 mm tablet the barium. RAD/Esophagus Dual Contrast IMPRESSION: No evidence of obstruction or gastroesophageal reflux. The patient was unable to swallow the 12 mm tablet the barium. Reading Location: [place] [address]
== END | disposition home or self-care (01) ==
PROVIDERS: PCP Family Medicine; Referring Provider Pediatrics; Visit Provider Pediatrics
DX: R13.10 Dysphagia, unspecified (principal)
CPT/HCPCS: 74221

== ENCOUNTER → 2025-03-07 | Outpatient (CLI) | payer MEDICARE, OTHER, SELFPAY ==
--- NOTE | 2025-03-07 13:58 | US_ITS ---
PROCEDURE: KIDNEY AND BLADDER 03/07/2025 REASON FOR EXAM: CHRONIC URINARY RETENTION TECHNIQUE: Procedure Code: USKI Modality: US Procedure: KIDNEY AND BLADDER FINDINGS: Right kidney measures 8.2 Cm and left kidney measures 9.5 Cm. Normal echotexture of bilateral kidneys. No hydronephrosis. No renal stones. Postvoid volume of 64ml, borderline retention. US/Kidney and Bladder IMPRESSION: No hydronephrosis. Postvoid volume of 64ml, borderline retention. Reading Location: [facility]
== END | disposition home or self-care (01) ==
LOC: US 13:55
PROVIDERS: PCP Family Medicine; Referring Provider Urology; Visit Provider Urology
DX: N31.9 Neuromuscular dysfunction of bladder, unspecified (principal); N39.41 Urge incontinence; R33.9 Retention of urine, unspecified
CPT/HCPCS: 76770